=== PATIENT | male | born 1960 | race Caucasian/White ===

== ENCOUNTER 2023-01-22 05:37 | Inpatient (IN) ==
--- NOTE | 2022-11-01 09:55 | PAT Medication Instructions ---
Medication Instructions Date of Service November 01, 2022 Home Medications acetaminophen 325 mg capsule 650 mg PO Q6H PRN Pain amlodipine 5 mg tablet 5 mg PO BID bupropion HCl 150 mg tablet,12 hr sustained-release 150 mg PO BID clopidogrel 75 mg tablet 75 mg PO DAILY hydralazine 25 mg tablet 25 mg PO BID irbesartan 300 mg tablet 300 mg PO DAILY loratadine 10 mg tablet 10 mg PO DAILY metoprolol succinate 100 mg tablet,extended release 24 hr 100 mg PO QAM multivitamin 1 tab PO DAILY aspirin 81 mg capsule 81 mg PO DAILY atorvastatin 20 mg tablet 20 mg PO QPM sodium chloride 1,000 mg soluble tablet 1,000 mg PO DAILY ASK your surgeon for instructions clopidogrel 75 mg tablet 75 mg PO DAILY aspirin 81 mg capsule 81 mg PO DAILY DO NOT take the morning of surgery irbesartan 300 mg tablet 300 mg PO DAILY loratadine 10 mg tablet 10 mg PO DAILY multivitamin 1 tab PO DAILY sodium chloride 1,000 mg soluble tablet 1,000 mg PO DAILY Take morning of surgery With a small sip of water, OTHERWISE NOTHING TO EAT OR DRINK AFTER MIDNIGHT: acetaminophen 325 mg capsule 650 mg PO Q6H PRN Pain (if needed) amlodipine 5 mg tablet 5 mg PO BID bupropion HCl 150 mg tablet,12 hr sustained-release 150 mg PO BID hydralazine 25 mg tablet 25 mg PO BID metoprolol succinate 100 mg tablet,extended release 24 hr 100 mg PO QAM Take evening before surgery acetaminophen 325 mg capsule 650 mg PO Q6H PRN Pain (if needed) amlodipine 5 mg tablet 5 mg PO BID bupropion HCl 150 mg tablet,12 hr sustained-release 150 mg PO BID hydralazine 25 mg tablet 25 mg PO BID atorvastatin 20 mg tablet 20 mg PO QPM Other Notes If you have any questions please call us at [phone] or [phone] or [phone] or [phone]
--- NOTE | 2022-11-06 09:09 | Anesthesiology Consultation ---
Date of Service November 06, 2022 Assessment & Plan (1) Encounter for pre-operative examination: - daughter or staff from facility ([facility]) sign consents per Lizzy, staff member accompanying patient today. - cardiology 07/17/22: "...2 eipsodes of TIA-like symptoms with negative MRI of the brain, implantable loop recorder showed no arrhythmia...cerebellar ataxia...continue current medications...RTC in 8 months..." Chart Review Chart Review: Acceptable Risk for Surgery and Patient seen in Pre Admission Testing Teaching & Discussion Pre-Anesthesia Teaching/Discussion Notes: Instructed NPO after midnight before surgery, except medications with 15 cc of water. Medication instructions provided according to the PAT guidelines. History Surgery Operation Date: 11/14/22 07:30 Proposed Procedures p Right Transcarotid Artery Revascularization - Thierno Nicolas MD Height/Weight Height: 5 ft 7.5 in Weight: 88 kg Allergies Allergy/AdvReac Type Severity Reaction Status Date / Time Penicillins AdvReac Severe Rash Verified 10/31/22 13:35 lisinopril AdvReac Unknown Cough Verified 10/31/22 13:35 Medications Home Medications Medication Instructions Recorded Confirmed Last Taken acetaminophen 325 mg capsule 650 mg PO Q6H PRN Pain 10/05/20 10/31/22 Unknown amlodipine 5 mg tablet 5 mg PO BID 10/05/20 10/31/22 Unknown bupropion HCl 150 mg tablet,12 hr 150 mg PO BID 10/05/20 10/31/22 Unknown sustained-release clopidogrel 75 mg tablet 75 mg PO DAILY 10/05/20 10/31/22 Unknown hydralazine 25 mg tablet 25 mg PO BID 10/05/20 10/31/22 Unknown irbesartan 300 mg tablet 300 mg PO DAILY 10/05/20 10/31/22 Unknown loratadine 10 mg tablet 10 mg PO DAILY 10/05/20 10/31/22 Unknown metoprolol succinate 100 mg 100 mg PO QAM 10/05/20 10/31/22 Unknown tablet,extended release 24 hr multivitamin 1 tab PO DAILY 10/05/20 10/31/22 Unknown aspirin 81 mg capsule 81 mg PO DAILY 10/31/22 10/31/22 Unknown atorvastatin 20 mg tablet 20 mg PO QPM 10/31/22 10/31/22 Unknown sodium chloride 1,000 mg soluble 1,000 mg PO DAILY 10/31/22 10/31/22 Unknown tablet Past Medical History Medical History (Updated 11/06/22 @ 15:54 by Terri Arce PA-C) Carotid artery stenosis 60% diameter stenosis of the right internal carotid artery origin on 04/2020 neck CTA Chronic obstructive pulmonary disease controlled, stable per pt, does not use rescue inhaler CVA (cerebral vascular accident) 5 yrs ago, denies residual effects Dementia per staff member: daughter signs consents, daughter or staff member will be present DOS GERD (gastroesophageal reflux disease) intermittent, stable per pt Hyperlipidemia Hypertension controlled, stable per pt Hyponatremia Major depressive disorder Patient denies h/o seizures, heart attack, heart failure, DM, blood clots or blood transfusions. Exercise / Class Metabolic Activity III < 4 Walking/Shop/Light housework (denies chest discomfort or shortness of breath with usual activities) Past Surgical History Surgical History (Updated 11/06/22 @ 09:06 by Terri Arce PA-C) History of tonsillectomy Past Anesthesia History No Hx of Anesthesia Complications and No Family Hx of Anesthesia Complications History of PONV No Hx of PONV and No Hx of Motion Sickness Social History Smoking Status: Current every day smoker (10 cigarettes day-advised) Do You Dip or Chew Tobacco: No Hx Alcohol Use: No Hx Substance Use: No Review of Systems Patient denies chest pain, shortness of breath, dyspnea on exertion, snoring, witnessed apneas, fever, chills, cough, wheezing, or palpitations. Physical Exam Vital Signs Vitals BP 118/76 P 65 TEMP 97.9 SP02 98% on RA RESP 18 Physical Full cervical extension range of motion without pain TMD 3.5 finger bredaths Mallampati Score 2 Dentition: edentulous, wears upper dentures Lungs: normal respiratory effort. Clear throughout to auscultation, no adventitious breath sounds Cardiac: regular rate and rhythm, no murmurs noted Lab Results Anesthesia Preop Results Results Anesthesia Widget: WBC 4.38 K/ul (4.8-10.8) L 11/06/22 Hgb 12.1 g/dl (14.0-18.0) L 11/06/22 Hct 35.2 % (42.0-52.0) L 11/06/22 Plt 306 K/uL (130-400) 11/06/22 Na 133 mmol/L (136-145) L 11/06/22 K 4.6 mmol/L (3.5-5.1) 11/06/22 Cl 104 mmol/L (98-107) 11/06/22 CO2 22 mmol/L (21-32) 11/06/22 BUN 22 mg/dl (6-23) 11/06/22 Creat 1.32 mg/dl (0.6-1.4) 11/06/22 Glucose Level 101 mg/dl (70-99(Fasting)) H 11/06/22 PT 10.8 Seconds (9.0-12.0) 11/06/22 PTT 28.8 Seconds (21.0-31.0) 11/06/22 INR 1.0 (0.9-1.1) 11/06/22 Blood Type O Positive 11/06/22 Antibody Screen NEGATIVE 11/06/22 Testing Electrocardiogram Date: 11/06/22 NSR, rate 61 bpm Chest X-Ray Date: 11/06/22 No pneumothorax. No pleural effusions. Small linear densities within the left mid to lower lung zones favor subsegmental atelectasis or scarring. Stable punctate calcified granuloma within the right lower lobe. No new focal lung consolidations to suggest a pneumonia. No evidence for pulmonary edema. The heart is normal in size. A loop recorder is noted. Old, healed left-sided rib fractures. There is also an old, healed distal left clavicle fracture. IMPRESSION: No acute process. Echocardiogram Date: 07/13/21 EF 60% Grade 1 diastolic dysfunction Mildly dilated RA Mild mitral regurgitation Moderate tricuspid regurgitation PASP 45 mmHg Stress Test Date: 09/04/21 Pharmacologic Mild movement and increased GI uptake. Good quality study No significant rest or stress associated MPI defects. No evidence of myocardial ischemia or infarct Low risk study EF 69% Normal LV wall motion Other Testing Neck CTA 05/09/20 60% diameter stenosis of the right internal carotid artery origin. COVID-19 Risk Screen Screening Information COVID-19 Screen Date: 11/06/22 Exposure 21 Days Family/Household +COVID Last 21 Days: No Exposure 10 Days Any COVID Exposure Last 10 Days: No Symptoms Last 10 Days Experienced COVID Sx Last 10 Days: No + COVID 0-90 Days COVID + in Last 0-90 Days: No
--- NOTE | 2023-01-09 10:52 | PAT Medication Instructions ---
Medication Instructions Date of Service January 09, 2023 Home Medications acetaminophen 325 mg capsule 650 mg PO Q6H PRN Pain amlodipine 5 mg tablet 5 mg PO BID bupropion HCl 150 mg tablet,12 hr sustained-release 150 mg PO BID clopidogrel 75 mg tablet 75 mg PO QAM hydralazine 25 mg tablet 25 mg PO BID irbesartan 300 mg tablet 300 mg PO QAM loratadine 10 mg tablet 10 mg PO QAM metoprolol succinate 100 mg tablet,extended release 24 hr 100 mg PO QAM multivitamin 1 tab PO QAM aspirin 81 mg capsule 81 mg PO DAILY atorvastatin 20 mg tablet 20 mg PO QPM sodium chloride 1,000 mg soluble tablet 1,000 mg PO QAM calcium carbonate 300 mg (750 mg) chewable tablet (Tums E-X) 300 mg PO TID PRN Heartburn ASK your prescriber and surgeon clopidogrel 75 mg tablet 75 mg PO QAM aspirin 81 mg capsule 81 mg PO DAILY DO NOT take the morning of surgery irbesartan 300 mg tablet 300 mg PO QAM loratadine 10 mg tablet 10 mg PO QAM multivitamin 1 tab PO QAM sodium chloride 1,000 mg soluble tablet 1,000 mg PO QAM calcium carbonate 300 mg (750 mg) chewable tablet (Tums E-X) 300 mg PO TID PRN Heartburn Take morning of surgery With a small sip of water, OTHERWISE NOTHING TO EAT OR DRINK AFTER MIDNIGHT: acetaminophen 325 mg capsule 650 mg PO Q6H PRN Pain (if needed) amlodipine 5 mg tablet 5 mg PO BID bupropion HCl 150 mg tablet,12 hr sustained-release 150 mg PO BID hydralazine 25 mg tablet 25 mg PO BID metoprolol succinate 100 mg tablet,extended release 24 hr 100 mg PO QAM Take evening before surgery acetaminophen 325 mg capsule 650 mg PO Q6H PRN Pain (if needed) amlodipine 5 mg tablet 5 mg PO BID bupropion HCl 150 mg tablet,12 hr sustained-release 150 mg PO BID hydralazine 25 mg tablet 25 mg PO BID atorvastatin 20 mg tablet 20 mg PO QPM calcium carbonate 300 mg (750 mg) chewable tablet (Tums E-X) 300 mg PO TID PRN Heartburn (if needed) Other Notes If you have any questions please call us at [phone] or [phone] or [phone] or [phone]
[~2023-01-22 05:37] MED LIST: ALLERGY Noted to ORDERED Medication SCH; CLINDAMYCIN/D5W 900 MG/50 ML BAG IV SCH; SODIUM CHLORIDE 0.9% 1000ML IV SCH
[2023-01-22] MEDS ORDERED: CLINDAMYCIN/D5W 900 MG/50 ML BAG IV SCH (06:00)
[2023-01-22] MEDS ORDERED: fentaNYL citrate PF 100 MCG/2 ML VIAL ONE (06:20)
[2023-01-22] MEDS ORDERED: ROCURONIUM BROMIDE 10 MG/ML 5 ML VIAL IV ONE ×4 (06:20→09:48)
[2023-01-22] MEDS ORDERED: PROPOFOL IV EMULSION 10 MG/ML 20 ML VIAL IV ONE (06:20)
[2023-01-22] MEDS ORDERED: SUGAMMADEX SODIUM 200 MG/2 ML VIAL IV ONE (06:20)
[2023-01-22] MEDS ORDERED: HEPARIN SOD (PORCINE) 1000 UNIT/ML ONE (06:20)
[2023-01-22] MEDS ORDERED: NITROGLYCERIN/D5W 100 MCG/ML BTL ONE (06:20)
[2023-01-22] MEDS ORDERED: ONDANSETRON INJ 2 MG/ML 2 ML VIAL ONE (06:20)
[2023-01-22] MEDS ORDERED: DEXAMETHASONE SOD INJ 4 MG/ML VIAL ONE (06:20)
[2023-01-22] MEDS ORDERED: ESMOLOL HCL INJ 10 MG/ML 10ML VIAL IV ONE (06:20)
[2023-01-22] MEDS ORDERED: LIDOCAINE 1% LOCAL 20 ML VIAL ONE (07:03)
[2023-01-22] MEDS ORDERED: GELATIN SPONGE SZ 100 ONE (07:03)
[2023-01-22] MEDS ORDERED: HEPARIN (PORCINE) 1000 UNIT/ML 10 ML (CATH LAB USE ONLY) ONE (07:03)
[2023-01-22] MEDS ORDERED: THROMBIN FOR SOLN 20000 UNIT KIT ONE (07:03)
[2023-01-22] MEDS ORDERED: ceFAZolin 330 MG/ML 1 GM VIAL ONE (07:03)
[2023-01-22] MEDS ORDERED: BUPIVACAINE/EPINEPHRINE 0.5% MPF 1:200,000 30 ML VIAL ONE (07:03)
--- NOTE | 2023-01-22 07:51 | History & Physical Report ---
Date of Service January 22, 2023 Assessment & Plan (1) Bilateral carotid artery stenosis: Plan: Patient admitted for a right CEA. TCAR was not approved by his insurance. I have discussed the risks options and benefits of the procedure with the patient. The patient understands the risks options and benefits and agrees to the procedure. History of Present Illness Chief Complaint: Bilateral carotid stenosis Primary Care Provider: Daisha Montana PA-C Mr. Jones is a middle-aged male who presents for bilateral ICA stenosis noted on recent imaging. Patient states that he has a history of stroke in the past, but is unable to give any more specific history. He states that his symptoms were "falling into a chair" about 3 years ago. He denies any symptoms of cerebrovascular insufficiency in the recent past, including amaurosis, extremity weakness numbness or tingling, difficulty speaking or swallowing, facial droop. 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 Patient denies headache, fever, chest pain, shortness of breath, abdominal pain, nausea, vomiting, rest pain, claudication, nonhealing wounds or ulcers, other complaints. Allergies Allergy/AdvReac Type Severity Reaction Status Date / Time Penicillins AdvReac Severe Rash Verified 01/09/23 10:05 lisinopril AdvReac Mild Cough Verified 01/09/23 10:05 Home Medications Medication Instructions Recorded Confirmed Type acetaminophen 325 mg capsule 650 mg PO Q6H PRN Pain 10/05/20 01/22/23 History amlodipine 5 mg tablet 5 mg PO BID 10/05/20 01/22/23 History bupropion HCl 150 mg tablet,12 hr 150 mg PO BID 10/05/20 01/22/23 History sustained-release clopidogrel 75 mg tablet 75 mg PO QAM 10/05/20 01/22/23 History hydralazine 25 mg tablet 25 mg PO BID 10/05/20 01/22/23 History irbesartan 300 mg tablet 300 mg PO QAM 10/05/20 01/22/23 History loratadine 10 mg tablet 10 mg PO QAM 10/05/20 01/22/23 History metoprolol succinate 100 mg 100 mg PO QAM 10/05/20 01/22/23 History tablet,extended release 24 hr multivitamin 1 tab PO QAM 10/05/20 01/22/23 History aspirin 81 mg capsule 81 mg PO DAILY 10/31/22 01/22/23 History atorvastatin 20 mg tablet 20 mg PO QPM 10/31/22 01/22/23 History sodium chloride 1,000 mg soluble 1,000 mg PO QAM 10/31/22 01/22/23 History tablet calcium carbonate 300 mg (750 mg) 300 mg PO TID PRN Heartburn 01/09/23 01/22/23 History chewable tablet (Tums E-X) Past Med/Surg History Medical History Carotid artery stenosis 60% diameter stenosis of the right internal carotid artery origin on 04/2020 neck CTA Chronic obstructive pulmonary disease controlled, stable per pt, does not use rescue inhaler CVA (cerebral vascular accident) 5 yrs ago, denies residual effects Dementia per staff member: daughter signs consents, daughter or staff member will be present DOS GERD (gastroesophageal reflux disease) intermittent, stable per pt Hyperlipidemia Hypertension controlled, stable per pt Hyponatremia Major depressive disorder Surgical History History of tonsillectomy Family History Other Family history unknown Social History Smoking Status: Unknown if ever smoked Preferred Language: Japanese Communication Ability: Effective Communication Ability Comment: per [facility] pt is of sound mind to sign consents Emergency Operator Required: No Current Living Situation: Intermediate Assistive Devices Comment: unsure what devices pt needs Review of Systems All systems reviewed & are unremarkable except as noted in HPI & below Physical Exam Physical Exam: Constitutional: In general patient is a healthy-appearing well-nourished well- developed middle-aged male in no distress. He is alert and oriented without any focal deficits. He is a poor historian. His head is normocephalic and atraumatic. His neck is supple nontender with midline trachea. There is a faint bilateral carotid bruit. His heart is regular, his lungs are decreased throughout with sparse expiratory wheezing but clear otherwise. His abdomen is soft nontender with normoactive bowel sounds in all 4 quadrants. Brachial radial and femoral pulses are +3. Lower extremity distal pulses are +2 in the left +1 on the right. He has brisk capillary refill and no sign of distal ischemia. There is no edema. Results & Data Vital Signs (Past 12 Hours) Vital Signs Temp Pulse Resp BP Pulse Ox O2 Del Method 01/22/23 05:59 36.4 C L 64 20 137/70 99 Room Air
[2023-01-22] MEDS ORDERED: LACTATED RINGER'S 1,000 ML IV SCH (09:00)
[2023-01-22] MEDS ORDERED: ATROPINE SULFATE 0.1 MG/ML 10ML SYR IV PRN (09:41)
[2023-01-22] MEDS ORDERED: NALOXONE HCL 0.4 MG/1 ML VIAL/CARP IV PRN (09:41)
[2023-01-22] MEDS ORDERED: ONDANSETRON INJ 2 MG/ML 2 ML VIAL IV PRN (09:41)
[2023-01-22] MEDS ORDERED: ePHEDrine sulfate 50 MG/ML AMP IV PRN (09:41)
[2023-01-22] MEDS ORDERED: FLUMAZENIL 0.1 MG/1 ML 10 ML VIAL IV PRN (09:41)
[2023-01-22] MEDS ORDERED: LABETALOL HCL IV 5 MG/ML 20ML IV PRN (09:41)
[2023-01-22] MEDS ORDERED: fentaNYL citrate PF 100 MCG/2 ML VIAL IV PRN (09:41)
[2023-01-22] MEDS ORDERED: PROMETHAZINE HCL 12.5 MG in SODIUM CHLORIDE 0.9% 50 ML IV PRN (09:41)
[2023-01-22] MEDS ORDERED: PROTAMINE SULFATE 10 MG/ML 5 ML VIAL IV ONE (10:48)
--- NOTE | 2023-01-22 11:13 | Operative Report ---
Post Operative Report Pre & Post Diagnosis Operation Date: 01/22/23 07:30 Pre-Op Diagnosis: Right Internal Carotid Artery Stenosis Post-Op Diagnosis: Right Internal Carotid Artery Stenosis I identified the patient and participated in the time-out.: Yes Procedure Operation Date: 01/22/23 07:30 Actual Procedures p Right Carotid Endarterectomy with Bovine Patch(Right) - Thierno Nicolas MD Surgeon Thierno Nicolas MD Associate Store Manager David,PAC Estimated Blood Loss 50 Findings Consistent with Post-Op Diagnosis Specimens plaque Anesthesia Type General Complications none Disposition Accompanied Patient To Recovery: No Disposition: Recovery Room Indications This is a 62-year-old gentleman who was found to have bilateral severe internal carotid artery stenosis. Intervention was recommended. We discussed the risks options and benefits of TCAR versus endarterectomy. His insurance declined the TCAR procedure. He is now admitted for right carotid endarterectomy. I have discussed the risks options and benefits of the procedure with the patient. The patient understands the risks options and benefits and agrees to the procedure. Description of Procedure The patient was taken to the operating room and placed in supine position. After general anesthesia was accomplished the right side of the neck was prepped and draped in a sterile manner. The patient was identified and a timeout performed. A longitudinal neck incision was then made coursing along the medial border of the sternocleidomastoid muscle. The incision was taken down through the platysmal layer. The facial vein was identified, ligated, and divided. The common carotid artery was then seen. It was dissected free down to the omohyoid muscle. The dissection was carried upward until the external carotid artery and superior thyroid artery was seen. The superior thyroid artery was slung with a 2-0 silk suture. The external carotid was slung with a red rubber vessel loop. Next the dissection was carried up along the internal carotid artery. This was carried upward to beyond the area of narrowing. The hypoglossal nerve was not seen being that the bifurcation was low in the neck.. The patient was heparinized. After adequate heparinization was accomplished, the internal, external, and common carotid arteries were clamped. A longitudinal arteriotomy was started on the common carotid artery and extended upward along the internal carotid artery to a point beyond the area of narrowing. There was calcified plaque of the internal carotid artery origin causing approximately 85-90% narrowing. A Doppler shunt was then placed in the internal, followed by the common carotid artery and held in place with Jerry clamps. There was good back bleeding seen from the internal carotid artery. The endarterectomy was then started in the appropriate plane on the common carotid artery. This was carried upward and the external carotid was everted and endarterectomized. The e ndarterectomy was then carried up along the internal carotid artery till a nice feathering breakoff point was accomplished beyond the end of the plaque. The endarterectomy was then carried down further on the common carotid artery. At end of the arteriotomy, the plaque was then transected. Under loop magnification, all loose debris and flaps werer removed. There is no distal flap seen at the end of the endarterectomy site. 2 tacking stitches of 7-0 Prolene were placed in the internal carotid artery at the breakoff point posteriorly. The arteriotomy then closed using an bovine patch and a running CV 6 Prolene suture. This was done in the usual vascular fashion. Prior to completing the closure, the doppler shunt was removed and the internal and common carotid arteries were reclamped. Backbleeding and forward bleeding was allowed to occur. The flow surface was irrigated with heparinized saline. The final few sutures were then placed and securely tied. Clamps were then removed off the external and common carotid arteries. The clamp was then removed the internal carotid artery. Good distal flow was seen. Adequate hemostasis was seen of the patch. The wound was inspected and adequate hemostasis was obtained. The wound was irrigated with antibiotic solution. It was then closed with a running 3-0 Vicryl suture for the platysmal layer and a 4-0 subcuticular Vicryl suture for the skin edges. Dermabond was used for dressing. The patient left the operation room in satisfactory condition and tolerated the procedure well. All needle and sponge counts were correct at the end of the procedure. Shirley Dial Pac assisted due to lack of resident availability and was necessary for prepping, draping, retraction, wound closure defects, subQ and skin closure and was necessary for the case. I attest to the content of the Intraoperative Record and any orders documented therein. Any exceptions are noted below.
--- NOTE | 2023-01-22 12:09 | Anesthesiology Progress Note ---
Date of Service January 22, 2023 Anesthesia Post Procedure Vital Signs Vital Signs: Temp Pulse Pulse Resp BP BP Pulse Ox 01/22/23 12:00 67 16 133/62 123/65 96 01/22/23 11:50 65 16 132/60 128/60 96 01/22/23 11:40 65 16 125/60 112/73 96 01/22/23 11:30 36.3 C L 73 14 128/59 L 128/65 97 01/22/23 05:59 36.4 C L 64 20 137/70 99 O2 Del Method O2 Flow Rate 01/22/23 12:00 Nasal Cannula 3 01/22/23 11:50 Nasal Cannula 3 01/22/23 11:40 Nasal Cannula 3 01/22/23 11:30 Oxymask 6 01/22/23 05:59 Room Air Transfer of Care Handoff Completed per policy Notes Mental Status: alert / awake / arousable Patient Amnestic to Procedure: Yes Nausea / Vomiting: adequately controlled Pain: adequately controlled Airway Patency, RR, SpO2: stable & adequate BP & HR: stable & adequate Hydration State: stable & adequate Anesthetic Complications: no major complications apparent
[2023-01-22] MEDS ORDERED: MoRPHine SULFATE 4 MG/ML 1 ML CARP\\VIAL IV PRN (12:39)
[2023-01-22] MEDS ORDERED: oxyCODONE/ACETAMINOPHEN 5mg/325mg TAB PO PRN (12:39)
[2023-01-22] MEDS ORDERED: CALCIUM CARBONATE 500 MG CHEWABLE TAB PO PRN (12:54)
[2023-01-22] MEDS: LACTATED RINGER'S 1,000 ML IV SCH ×2 (13:00→23:28)
--- NOTE | 2023-01-22 14:29 | Critical Care Consultation ---
Date of Consultation January 22, 2023 Assessment & Plan (1) Bilateral carotid artery stenosis: (2) Alcohol use disorder: (3) Hypertension: (4) Urinary retention: Plan 62-year-old male past medical history of hypertension, dyslipidemia, CVA in the past presented to the hospital for carotid endarterectomy. In the ICU for further care -- Carotid artery stenosis S/p right-sided CEA by Dr. Nicolas on 01/22/2023 Neurochecks as per protocol Monitor for bleeding/swelling --Urinary retention Likely post operative Ba catheter to be placed -- Hypertension Continue with home medication --Active smoker with likely COPD Would recommend outpatient PFT No wheezing right now, no need for any inhalers -- Probable RICHARD BiPAP nightly and as needed shortness of breath --Prophylaxis VTE: IPC's GI: None Lines: Peripheral, left radial Diet: Cardiac Plan: Continue with neurochecks Given the history of alcohol abuse we will put the patient on CIWA protocol For the right-sided neck swelling around the incision site with hematoma, there is no stridor on physical exam Continue to monitor for any airway compromise Monitor H&H For urinary retention Ba catheter will be placed, can consider tamsulosin/finasteride later on Please note the above document was generated using voice recognition software. It may contain grammatical, syntax or spelling errors.Any formal questions or concerns about the content, text or information contained within the body of this dictation should be directly addressed to the provider for clarification. History of Present Illness Attending Physician: Thierno Nicolas MD History of Present Illness 62-year-old male presented to the hospital for right-sided carotid endarterectomy Past medical history: Hypertension, dyslipidemia, history of CVA Patient was sent to the ICU for further care At the time of examinations patient's systolic blood pressure was in the 160s. Saturating 98-99% on room air Not in any acute distress Denied any chest pain, no shortness of breath. Mild discomfort at the site of the incision. No cough. Complains of mild irritation in the right eye which is congested. Denies any headache, no nausea, no vomiting He was not able to urinate since coming to the ICU. Social history: Active smoker with greater than [id number] smoking history. Used to be heavy drinker Allergies Allergy/AdvReac Type Severity Reaction Status Date / Time Penicillins AdvReac Severe Rash Verified 01/09/23 10:05 lisinopril AdvReac Mild Cough Verified 01/09/23 10:05 Home Medications Medication Instructions Recorded Confirmed Type acetaminophen 325 mg capsule 650 mg PO Q6H PRN Pain 10/05/20 01/22/23 History amlodipine 5 mg tablet 5 mg PO BID 10/05/20 01/22/23 History bupropion HCl 150 mg tablet,12 hr 150 mg PO BID 10/05/20 01/22/23 History sustained-release clopidogrel 75 mg tablet 75 mg PO QAM 10/05/20 01/22/23 History hydralazine 25 mg tablet 25 mg PO BID 10/05/20 01/22/23 History irbesartan 300 mg tablet 300 mg PO QAM 10/05/20 01/22/23 History loratadine 10 mg tablet 10 mg PO QAM 10/05/20 01/22/23 History metoprolol succinate 100 mg 100 mg PO QAM 10/05/20 01/22/23 History tablet,extended release 24 hr multivitamin 1 tab PO QAM 10/05/20 01/22/23 History aspirin 81 mg capsule 81 mg PO DAILY 10/31/22 01/22/23 History atorvastatin 20 mg tablet 20 mg PO QPM 10/31/22 01/22/23 History sodium chloride 1,000 mg soluble 1,000 mg PO QAM 10/31/22 01/22/23 History tablet calcium carbonate 300 mg (750 mg) 300 mg PO TID PRN Heartburn 01/09/23 01/22/23 History chewable tablet (Tums E-X) Patient History Medical History Carotid artery stenosis 60% diameter stenosis of the right internal carotid artery origin on 04/2020 neck CTA Chronic obstructive pulmonary disease controlled, stable per pt, does not use rescue inhaler CVA (cerebral vascular accident) 5 yrs ago, denies residual effects Dementia per staff member: daughter signs consents, daughter or staff member will be present DOS GERD (gastroesophageal reflux disease) intermittent, stable per pt Hyperlipidemia Hypertension controlled, stable per pt Hyponatremia Major depressive disorder Surgical History History of tonsillectomy Family History Other Family history unknown Social History Smoking Status: Unknown if ever smoked Preferred Language: Niuean Communication Ability: Effective Communication Ability Comment: per [facility] pt is of sound mind to sign consents Ecologist Technician Required: No Current Living Situation: Care Home Assistive Devices Comment: unsure what devices pt needs Review of Systems Review of Systems: All systems reviewed & are unremarkable except as noted in HPI & below Physical Exam Physical Exam: Constitutional: No acute distress HEENT: EOMI, PERRLA, right conjunctival injection, right neck incision with some swelling and keron-incisional hematoma, no stridor Respiratory system: Good air entry bilaterally, no wheeze, no rhonchi, mild crackles bilateral lower lobes CVS: S1-S2 positive, no murmurs or gallops Abdomen: Soft, nontender, nondistended, positive bowel sounds x4, obese Extremities: +2 pulses bilaterally radialis/ dorsalis pedis, no cyanosis, no edema Neuro: Awake alert oriented x3 Psych: Normal mood and affect G/U: Ba being placed Skin: no rashes, warm and dry Lymphatic: no cervical or axillary lymphadenopathy Results & Data Results & Data Vital Signs (Past 12 Hours) Vital Signs Temp Pulse Pulse Pulse Resp BP BP 01/22/23 13:00 65 12 124/81 01/22/23 12:26 63 12 01/22/23 12:39 01/22/23 12:39 36.4 C L 01/22/23 12:26 63 01/22/23 12:10 36.3 C L 65 16 130/60 01/22/23 12:00 67 16 133/62 01/22/23 11:50 65 16 132/60 01/22/23 11:40 65 16 125/60 01/22/23 11:30 36.3 C L 73 14 128/59 L 01/22/23 05:59 36.4 C L 64 20 BP Pulse Ox O2 Del Method O2 Flow Rate 01/22/23 13:00 93 01/22/23 12:26 95 Room Air 01/22/23 12:39 Nasal Cannula 2 01/22/23 12:39 01/22/23 12:26 01/22/23 12:10 125/66 96 Nasal Cannula 3 01/22/23 12:00 123/65 96 Nasal Cannula 3 01/22/23 11:50 128/60 96 Nasal Cannula 3 01/22/23 11:40 112/73 96 Nasal Cannula 3 01/22/23 11:30 128/65 97 Oxymask 6 01/22/23 05:59 137/70 99 Room [place] [address] IN/OBS CONSULT LVL 4,60M Patient Type New Diagnoses Bilateral carotid artery stenosis I65.23 Alcohol use disorder F10.90 Hypertension I10 Urinary retention R33.9
[2023-01-22] MEDS ORDERED: LORazepam 2 MG/1 ML VIAL IV PRN ×3 (14:59)
[2023-01-22] MEDS ORDERED: Ativan IV Alcohol Withdrawal--Active Protocol IV PRN (14:59)
[2023-01-22] MEDS: THIAMINE HCL 100 MG TAB PO SCH (16:33)
[2023-01-22] MEDS: FOLIC ACID 1 MG TAB PO SCH (16:33)
[2023-01-22] MEDS: CLINDAMYCIN/D5W 600 MG/50 ML BAG IV SCH (18:11)
[2023-01-22] MEDS: amLODIPine BESYLATE 5 MG TAB PO SCH (20:18)
[2023-01-22] MEDS: hydrALAZINE HCL 25 MG TAB PO SCH (20:18)
[2023-01-22] MEDS: buPROPion SR 150 MG TABCR PO SCH (20:19)
[2023-01-22] MEDS ORDERED: ATORVASTATIN 20 MG TAB PO SCH (21:00)
[2023-01-23] MEDS: CLINDAMYCIN/D5W 600 MG/50 ML BAG IV SCH (01:36)
--- NOTE | 2023-01-23 07:34 | Critical Care Progress Note ---
Date of Service January 23, 2023 Assessment & Plan (1) Bilateral carotid artery stenosis: (2) Alcohol use disorder: (3) Hypertension: (4) Urinary retention: Plan 62-year-old male past medical history of hypertension, dyslipidemia, CVA in the past presented to the hospital for carotid endarterectomy. In the ICU for further care -- Carotid artery stenosis S/p right-sided CEA by Dr. Nicolas on 01/22/2023 Neurochecks as per protocol Monitor for bleeding/swelling --Urinary retention Likely post operative Ba catheter to be placed -- Hypertension Continue with home medication --Active smoker with likely COPD Would recommend outpatient PFT No wheezing right now, no need for any inhalers -- Probable RICHARD BiPAP nightly and as needed shortness of breath --Prophylaxis VTE: IPC's GI: None Lines: Peripheral, left radial Diet: Cardiac Plan: In/out: -2180, urine output 5550 Trial of discontinuing Ba later today. Patient hemodynamically stable to be out of the ICU Disposition as per vascular surgery Please note the above document was generated using voice recognition software. It may contain grammatical, syntax or spelling errors.Any formal questions or concerns about the content, text or information contained within the body of this dictation should be directly addressed to the provider for clarification. Admission and Anticipated Discharge Date Admission Date: January 22, 2023 Subjective Patient seen and examined at bedside. No acute distress, no adverse events overnight He said he had a good night sleep. Denies any chest pain, no shortness of breath No headache, no dizziness, no blurry vision Does complain of mild discomfort at the site of the incision but to be better than before No difficulty swallowing Review of Systems Review of Systems: All systems reviewed & are unremarkable except as noted in Subjective Physical Exam Physical Exam: Constitutional: No acute distress HEENT: EOMI, PERRLA, right conjunctival injection, right neck incision with some swelling and keron-incisional hematoma, no stridor Respiratory system: Good air entry bilaterally, no wheeze, no rhonchi, mild crackles bilateral lower lobes CVS: S1-S2 positive, no murmurs or gallops Abdomen: Soft, nontender, nondistended, positive bowel sounds x4, obese Extremities: +2 pulses bilaterally radialis/ dorsalis pedis, no cyanosis, no edema Neuro: Awake alert oriented x3, cranial nerves II to XII grossly intact, strength 5 out of 5 bilateral upper and lower extremity Psych: Normal mood and affect G/U: Ba being placed Skin: no rashes, warm and dry Lymphatic: no cervical or axillary lymphadenopathy Results & Data Results & Data Vital Signs (Past 12 Hours) Vital Signs Temp Pulse Resp BP Pulse Ox O2 Del Method 01/23/23 07:00 67 21 120/75 92 Room Air 01/23/23 06:00 73 12 149/73 H 93 Room Air 01/23/23 05:00 70 17 130/69 93 Room Air 01/23/23 04:00 74 14 150/77 H 92 Room Air 01/23/23 04:00 74 134/77 01/23/23 03:00 36.8 C 74 12 134/77 94 Room Air 01/23/23 02:00 78 12 121/55 L 92 Room Air 01/23/23 01:00 86 20 152/78 H 95 Room Air 01/23/23 00:00 78 01/23/23 00:00 77 137/72 01/23/23 00:00 36.9 C 77 19 137/72 92 Room Air 01/22/23 23:00 76 15 153/80 H 93 Room Air 01/22/23 22:00 78 12 143/77 H 96 01/22/23 21:00 79 15 150/84 H 93 Room Air 01/22/23 20:00 81 20 151/77 H 95 Room Air 01/22/23 20:00 80 135/55 L 01/22/23 20:00 75 Coding Level of Care Code 63436 SUB INP/OBS CARE 2/35MIN Diagnoses Bilateral carotid artery stenosis I65.23 Alcohol use disorder F10.90 Hypertension I10 Urinary retention R33.9
[2023-01-23] MEDS: FOLIC ACID 1 MG TAB PO SCH (08:09)
[2023-01-23] MEDS: hydrALAZINE HCL 25 MG TAB PO SCH (08:09)
[2023-01-23] MEDS: THIAMINE HCL 100 MG TAB PO SCH (08:09)
[2023-01-23] MEDS: buPROPion SR 150 MG TABCR PO SCH (08:09)
[2023-01-23] MEDS: amLODIPine BESYLATE 5 MG TAB PO SCH (08:09)
[2023-01-23] MEDS ORDERED: MULTIVITAMIN TAB PO SCH (09:00)
[2023-01-23] MEDS ORDERED: METOPROLOL SUCC 50MG EXT REL TAB PO SCH (09:00)
[2023-01-23] MEDS ORDERED: LORATADINE 10 MG TAB PO SCH (09:00)
[2023-01-23] MEDS ORDERED: SODIUM CHLORIDE 1 GM TABLET PO SCH (09:00)
[2023-01-23] MEDS ORDERED: LOSARTAN POTASSIUM 50 MG TAB PO SCH (09:00)
[2023-01-23] MEDS ORDERED: ASPIRIN 81 MG ECTAB PO SCH (09:00)
[2023-01-23] MEDS ORDERED: CLOPIDOGREL BISULFATE 75 MG TAB PO SCH (09:00)
--- NOTE | 2023-01-23 12:10 | Surgery Progress Note ---
Date of Service January 23, 2023 Assessment & Plan (1) S/P carotid endarterectomy: Plan: This gentleman is postoperative day 1 from carotid endarterectomy. He is doing extremely well. He is having no difficulty. He was discharged today to self- care at home. Admission and Anticipated Discharge Date Admission Date: January 22, 2023 Subjective Patient is awake alert. He is sitting in chair eating without difficulty. He has no swallowing problems. He has some mild hoarseness from irritation from the endotracheal tube. Physical Exam Constitutional: WD/WN, vitals as above Neck: trachea midline Respiratory: normal respiratory effort; no respiratory distress Cardiovascular: Rate/Rhythm: regular rate and regular rhythm Musculoskeletal: no cyanosis or clubbing, extremities motor strength 5/5 Skin: + incision (There is mild swelling along the incision line with mild ecchymosis.) Neurologic: CN's II-XI intact bilaterally and moves all extremities Psychiatric: Orientation: alert and oriented x 3 Results & Data Vital Signs (Past 12 Hours) Vital Signs Temp Pulse Resp BP Pulse Ox O2 Del Method 01/23/23 12:00 63 127/73 01/23/23 11:00 63 13 127/73 95 Room Air 01/23/23 10:00 65 17 96 Room Air 01/23/23 09:00 65 13 120/72 96 Room Air 01/23/23 08:00 66 23 139/81 96 Room Air 01/23/23 08:00 36.4 C L 01/23/23 07:00 67 21 120/75 92 Room Air 01/23/23 06:00 73 12 149/73 H 93 Room Air 01/23/23 05:00 70 17 130/69 93 Room Air 01/23/23 04:00 74 14 150/77 H 92 Room Air 01/23/23 04:00 74 134/77 01/23/23 03:00 36.8 C 74 12 134/77 94 Room Air 01/23/23 02:00 78 12 121/55 L 92 Room Air 01/23/23 01:00 86 20 152/78 H 95 Room Air
--- NOTE | 2023-01-23 12:19 | Discharge Summary ---
Date of Service January 23, 2023 Admission HPI Per Admitting Provider Mr. Jones is a middle-aged male who presents for bilateral ICA stenosis noted on recent imaging. Patient states that he has a history of stroke in the past, but is unable to give any more specific history. He states that his symptoms were "falling into a chair" about 3 years ago. He denies any symptoms of cerebrovascular insufficiency in the recent past, including amaurosis, extremity weakness numbness or tingling, difficulty speaking or swallowing, facial droop. 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 Patient denies headache, fever, chest pain, shortness of breath, abdominal pain, nausea, vomiting, rest pain, claudication, nonhealing wounds or ulcers, other complaints. Admission Exam Per Admitting Provider Constitutional: In general patient is a healthy-appearing well-nourished well- developed middle-aged male in no distress. He is alert and oriented without any focal deficits. He is a poor historian. His head is normocephalic and atraumatic. His neck is supple nontender with midline trachea. There is a faint bilateral carotid bruit. His heart is regular, his lungs are decreased throughout with sparse expiratory wheezing but clear otherwise. His abdomen is soft nontender with normoactive bowel sounds in all 4 quadrants. Brachial radial and femoral pulses are +3. Lower extremity distal pulses are +2 in the left +1 on the right. He has brisk capillary refill and no sign of distal ischemia. There is no edema. Principal Diagnosis Right internal carotid artery stenosis Discharge Exam Constitutional: In general patient is a healthy-appearing well-nourished well- developed middle-aged male in no distress. He is alert and oriented without any focal deficits. He is a poor historian. His head is normocephalic and atraumatic. His neck is supple nontender with midline trachea. There is a faint bilateral carotid bruit. His heart is regular, his lungs are decreased throughout with sparse expiratory wheezing but clear otherwise. His abdomen is soft nontender with normoactive bowel sounds in all 4 quadrants. Brachial radial and femoral pulses are +3. Lower extremity distal pulses are +2 in the left +1 on the right. He has brisk capillary refill and no sign of distal ischemia. There is no edema. Constitutional WD/WN, vitals as above Neck trachea midline Respiratory normal respiratory effort; no respiratory distress Cardiovascular Rate/Rhythm: regular rate and regular rhythm Musculoskeletal no cyanosis or clubbing, extremities motor strength 5/5 Skin + incision (There is mild swelling along the incision line with mild ecchymosis.) Neurologic CN's II-XI intact bilaterally and moves all extremities Psychiatric Orientation: alert and oriented x 3 Discharge Data Allergies Allergy/AdvReac Type Severity Reaction Status Date / Time Penicillins AdvReac Severe Rash Verified 01/09/23 10:05 lisinopril AdvReac Mild Cough Verified 01/09/23 10:05 Consultations 01/22/23 12:39 Consult Plastic Surgeon Routine Procedures Performed Operation Date: 01/22/23 07:30 Actual Procedures p Right Carotid Endarterectomy with Bovine Patch(Right) - Thierno Nicolas MD Hospital Course (1) S/P carotid endarterectomy: This gentleman is postoperative day 1 from carotid endarterectomy. He is doing extremely well. He is having no difficulty. He was discharged today to self- care at home. Total Time Total Time Spent Total Time Spent (In Minutes): 0 Discharge Plan Discharge Items Patient Disposition: Home - Self-Care Reason For Visit: Right Internal Carotid Artery Stenosis Discharge Diagnosis: Right internal carotid artery stenosis Activity: Per Instructions section Non-emergency contact: Surgeon Call non-emergency contact if: your temperature is above 101.5, your wound has increased redness, your wound has increased drainage and your wound pain has increased Follow-up/Referrals: Daisha Montana PA-C [Primary Care Provider] - Diet: Heart Healthy Add Attending Provider Instructions: SPECIAL CARE INSTRUCTIONS: Medications: * Continue to take Aspirin and Plavix as directed. Incision Care: * You may shower, but do not rub incision. You may let the warm soapy water run over it. Be sure to dry the incision well after bathing. * Do not shave directly over the incision until it is healed. * DO NOT IMMERSE THE INCISION IN A TUB/POOL/etc. UNTIL HEALED. Restrictions: * Do not drive for at least one week or if you are still taking any narcotic pain medication. * Do not lift anything heavier than a gallon of milk for one week after going home. Possible Complications: * Numbness - It is normal to have some numbness around the incision. Numbness can extend beyond the incision to areas of the neck, ear and face. The numbness is due to bruising of nerves during the surgery and will gradually improve over a period of months. * Hoarseness/Difficulty Speaking and Swallowing - The bruising of nerves in the neck can also cause a hoarse voice, difficulty speaking or swallowing. This may improve over time, HOWEVER, if it continues for more than a few days please contact our office ([phone]). * Excessive Swelling - There will be some swelling immediately after surgery which usually resolves within one week. If you notice that the swelling is getting worse, notify your surgeon ([phone]). * Drainage/Bleeding - If there is any drainage or bleeding, it should be a very small amount (less than a teaspoon per day). If you have excessive bleeding or drainage from the incision, call your surgeon ([phone]) right away. ACTIVATION OF EMERGENCY MEDICAL SYSTEM: Call 911, immediately, if you experience any of the following: Warning Signs and Symptoms of Stroke: * Sudden numbness or weakness of the face, arm or leg, especially on one side of the body * Sudden confusion, trouble speaking or understanding * Sudden trouble seeing in one or both eyes * Sudden trouble walking, dizziness, loss of balance or coordination * Sudden severe headache with no cause Do not delay calling 911 if you experience any warning signs or symptoms of a stroke. Delay in seeking medical attention may affect what treatments can be given to you. Risk Factors for Stroke: You can reduce your chances of stroke by working with your medical provider to adopt a healthy lifestyle. Some specific ways to lower your chance of stroke are: * If you are a smoker, now is the time to stop smoking cigarettes * If you are diabetic, improve the control of your blood sugars * Avoid excessive amounts of alcohol * Control high blood pressure * Lose weight if you are overweight * Be sure to lead an active lifestyle * Eat a healthy diet low in salt, cholesterol and fat You should know about other risk factors for stroke that you are unable to control. These include: * Age 55 years or older * Male gender * Certain racial groups: , or / * Family History of Stroke, Mini stroke or Heart Attack * Sickle Cell Disease You will be receiving a call from the Vascular Surgery Nurse after you are discharged. FOLLOW UP VISIT: It is important for you to keep your follow up appointments with your medical provider. Keep any scheduled doctor appointments. Call [phone] to schedule a follow up appointment if one not already scheduled. Pending Studies at Discharge: No Stand-Alone Forms: My [facility], Smoking Cessation Medications and DC Order Prescriptions: New oxycodone-acetaminophen [Percocet] 5-325 mg tablet 1 tab PO Q6H PRN (Reason: pain) Qty: 20 0RF Continued bupropion HCl 150 mg tablet sustained-release 12 hr 150 mg PO BID clopidogrel 75 mg tablet 75 mg PO QAM Patient Comments: per [facility] prior to surgery 01/15/23 irbesartan 300 mg tablet 300 mg PO QAM loratadine 10 mg tablet 10 mg PO QAM metoprolol succinate 100 mg tablet extended release 24 hr 100 mg PO QAM multivitamin Tablet 1 tab PO QAM acetaminophen 325 mg capsule 650 mg PO Q6H PRN (Reason: Pain) amlodipine 5 mg tablet 5 mg PO BID hydralazine 25 mg tablet 25 mg PO BID atorvastatin 20 mg Tablet 20 mg PO QPM sodium chloride 1,000 mg Tablet,Soluble 1,000 mg PO QAM aspirin 81 mg Capsule 81 mg PO DAILY calcium carbonate [Tums E-X] 300 mg (750 mg) Tablet,Chewable 300 mg PO TID PRN (Reason: Heartburn) Discharge Orders: Discharge Order (Routine); Ordered 01/23/23 Ordered By: Thierno Nicolas Admission Data Admit Date/Time: 01/22/23 07:51 Attending Provider: Thierno Nicolas Admit Provider: Thierno Nicolas Primary Care Provider: Daisha Montana Other Providers: Duran Baer ; Daniel Magdaleno ; Jairo Guerra ; Zoran Cates ; Jeremy Donnelly ; Darío Dykes ; Cecilia Galaviz ; David Manzo ; Jayla Carlisle
== END 2023-01-23 15:58 | disposition home or self-care (01) | DRG 39 ==
LOC: ASU 05:37 → 1E 07:51

== ENCOUNTER 2023-03-19 05:29 | Inpatient (IN) ==
--- NOTE | 2023-03-01 14:22 | PAT Medication Instructions ---
Medication Instructions Date of Service March 01, 2023 Home Medications Medication Instructions Recorded oxycodone-acetaminophen 5 mg-325 1 tab PO Q6H PRN pain #20 tabs //23 mg tablet (Percocet) acetaminophen 325 mg capsule 650 mg PO Q6H PRN amlodipine 5 mg tablet 5 mg PO BID bupropion HCl 150 mg tablet,12 hr sustained-release 150 mg PO BID clopidogrel 75 mg tablet 75 mg PO QAM hydralazine 25 mg tablet 25 mg PO BID irbesartan 300 mg tablet 300 mg PO QAM loratadine 10 mg tablet 10 mg PO QAM metoprolol succinate 100 mg tablet,extended release 24 hr 100 mg PO QAM multivitamin 1 tab PO QAM aspirin 81 mg capsule 81 mg PO DAILY atorvastatin 20 mg tablet 20 mg PO QPM sodium chloride 1,000 mg soluble tablet 1,000 mg PO QAM calcium carbonate 300 mg (750 mg) chewable tablet (Tums E-X) 300 mg PO TID PRN oxycodone-acetaminophen 5 mg-325 mg tablet (Percocet) 1 tab PO Q6H PRN ASK your prescriber and surgeon clopidogrel 75 mg tablet 75 mg PO QAM aspirin 81 mg capsule 81 mg PO DAILY DO NOT take the morning of surgery irbesartan 300 mg tablet 300 mg PO QAM loratadine 10 mg tablet 10 mg PO QAM multivitamin 1 tab PO QAM sodium chloride 1,000 mg soluble tablet 1,000 mg PO QAM calcium carbonate 300 mg (750 mg) chewable tablet (Tums E-X) 300 mg PO TID PRN Take morning of surgery With a small sip of water, OTHERWISE NOTHING TO EAT OR DRINK AFTER MIDNIGHT: acetaminophen 325 mg capsule 650 mg PO Q6H PRN(if needed) amlodipine 5 mg tablet 5 mg PO BID bupropion HCl 150 mg tablet,12 hr sustained-release 150 mg PO BID hydralazine 25 mg tablet 25 mg PO BID metoprolol succinate 100 mg tablet,extended release 24 hr 100 mg PO QAM oxycodone-acetaminophen 5 mg-325 mg tablet (Percocet) 1 tab PO Q6H PRN(if needed) Take evening before surgery acetaminophen 325 mg capsule 650 mg PO Q6H PRN(if needed) amlodipine 5 mg tablet 5 mg PO BID bupropion HCl 150 mg tablet,12 hr sustained-release 150 mg PO BID hydralazine 25 mg tablet 25 mg PO BID atorvastatin 20 mg tablet 20 mg PO QPM oxycodone-acetaminophen 5 mg-325 mg tablet (Percocet) 1 tab PO Q6H PRN(if needed) Other Notes If you have any questions please call us at [phone] or [phone] or [phone] or [phone]
--- NOTE | 2023-03-14 08:52 | Anesthesiology Consultation ---
Date of Service March 14, 2023 Assessment & Plan (1) Encounter for pre-operative examination: - COVID screening: Per assessment on 03/01: No known COVID-19 positive contacts or current COVID-19 related symptoms. Travel screen negative. Patient at [facility]. Covid preop testing to be done DOS per PAT RN phone assessment- Covid order placed. - Cardiology note prior to right CEA (originally scheduled as TCAR, changed to CEA d/t insurance denial of TCAR): "..low to moderate risk...ok to stop Plavix x 5 days.." - S/P Right CEA (01/22/23): ETT 7.5 at [facility]. No issues noted per post-op anesthesia progress note. - Consents: Dementia. Per PAT RN phone assessment, facility staff member indicates daughter signs consents. Daughter or staff member will be present DOS. - Check BMP DOS (Not received with recent preop labs) Chart Review Chart Review: Acceptable Risk for Surgery and Patient NOT seen in Pre Admission Testing History Surgery Operation Date: 03/19/23 07:30 Proposed Procedures p Left Carotid Endarterectomy - Thierno Nicolas MD Height/Weight Height: 5 ft 7.5 in Weight: 88.088 kg Allergies Allergy/AdvReac Type Severity Reaction Status Date / Time Penicillins AdvReac Severe Rash Verified 03/01/23 14:03 lisinopril AdvReac Mild Cough Verified 03/01/23 14:03 Medications Home Medications Medication Instructions Recorded Confirmed Last Taken acetaminophen 325 mg capsule 650 mg PO Q6H PRN Pain 10/05/20 03/01/23 Unknown amlodipine 5 mg tablet 5 mg PO BID 10/05/20 03/01/23 01/21/23 05:00 bupropion HCl 150 mg tablet,12 hr 150 mg PO BID 10/05/20 03/01/23 01/22/23 05:00 sustained-release clopidogrel 75 mg tablet 75 mg PO QAM 10/05/20 03/01/23 01/17/23 hydralazine 25 mg tablet 25 mg PO BID 10/05/20 03/01/23 01/22/23 05:00 irbesartan 300 mg tablet 300 mg PO QAM 10/05/20 03/01/23 01/21/23 loratadine 10 mg tablet 10 mg PO QAM 10/05/20 03/01/23 01/21/23 metoprolol succinate 100 mg 100 mg PO QAM 10/05/20 03/01/23 01/22/23 05:00 tablet,extended release 24 hr multivitamin 1 tab PO QAM 10/05/20 03/01/23 01/17/23 aspirin 81 mg capsule 81 mg PO DAILY 10/31/22 03/01/23 01/17/23 atorvastatin 20 mg tablet 20 mg PO QPM 10/31/22 03/01/23 01/21/23 17:00 sodium chloride 1,000 mg soluble 1,000 mg PO QAM 10/31/22 03/01/23 01/17/23 tablet calcium carbonate 300 mg (750 mg) 300 mg PO TID PRN Heartburn 01/09/23 03/01/23 Unknown chewable tablet (Tums E-X) oxycodone-acetaminophen 5 mg-325 1 tab PO Q6H PRN pain #20 tabs 01/23/23 Unknown mg tablet (Percocet) Past Medical History Medical History Carotid artery stenosis 95% [place] stenosis, 90% LICA stenosis per 09/2022 vascular surgeon visit note S/P Right CEA 01/22/23, now scheduled for Left CEA Chronic obstructive pulmonary disease CVA (cerebral vascular accident) 5 years ago, denies residual effects Dementia Per staff member: daughter signs consents, daughter or staff member will be present DOS GERD (gastroesophageal reflux disease) intermittent, stable per pt Hyperlipidemia Hypertension controlled, stable per pt Hyponatremia Low 130s per chart review, WNL on 01/02/23 labs Major depressive disorder [facility] resident resident of [facility] Past Family History Family History Other Family history unknown Past Surgical History Surgical History (Updated 03/01/23 @ 14:01 by Marge Gleason RN) History of tonsillectomy S/P carotid endarterectomy 12/2022 Social History Smoking Status: Unknown if ever smoked Lab Results Anesthesia Preop Results Results Anesthesia Widget: Blood Type O Positive 01/22/23 Antibody Screen NEGATIVE 01/22/23 Testing Laboratory Results 03/13/23 WBC 4.5 H/H 12.1/36.2 PLATELETS 330 PT 10.2 PTT 29 INR 1.0 Electrocardiogram Date: 11/06/22 NSR, rate 61 bpm Chest X-Ray Date: 11/06/22 No pneumothorax. No pleural effusions. Small linear densities within the left mid to lower lung zones favor subsegmental atelectasis or scarring. Stable punctate calcified granuloma within the right lower lobe. No new focal lung consolidations to suggest a pneumonia. No evidence for pulmonary edema. The heart is normal in size. A loop recorder is noted. Old, healed left-sided rib fractures. There is also an old, healed distal left clavicle fracture. IMPRESSION: No acute process. Echocardiogram Date: 07/13/21 EF 60% Grade 1 diastolic dysfunction Mildly dilated RA Mild mitral regurgitation Moderate tricuspid regurgitation PASP 45 mmHg Stress Test Date: 09/04/21 Pharmacologic Mild movement and increased GI uptake. Good quality study No significant rest or stress associated MPI defects. No evidence of myocardial ischemia or infarct Low risk study EF 69% Normal LV wall motion Other Testing Neck CTA Date: 05/09/20 60% diameter stenosis of the right internal carotid artery origin.
[2023-03-19] MEDS ORDERED: CLINDA 900 MG **Premixed Bag IV SCH (06:00)
[2023-03-19] MEDS ORDERED: SODIUM CHLORIDE 0.9% 1000ML IV SCH (06:00)
[2023-03-19 06:12] LABS: BUN Creatinine Ratio 11.1 (10-20); Calcium 9.4 mg/dl (8.6-10.3); Creatinine Clr Calc Pharmacy 59.5 ml/min; Est GFR (African American) 64.3 ml/min; Est GFR (Non-African American) 55.5 ml/min; Potassium 4.3 mmol/L (3.5-5.1)
[2023-03-19] MEDS ORDERED: DEXAMETHASONE SOD INJ 4 MG/ML VIAL ONE (06:38)
[2023-03-19] MEDS ORDERED: ROCURONIUM BROMIDE 10 MG/ML 5 ML VIAL IV ONE ×5 (06:38→08:48)
[2023-03-19] MEDS ORDERED: PROPOFOL IV EMULSION 10 MG/ML 20 ML VIAL IV ONE (06:38)
[2023-03-19] MEDS ORDERED: fentaNYL citrate PF 100 MCG/2 ML VIAL ONE (06:38)
[2023-03-19] MEDS ORDERED: LIDOCAINE 2% 2 ML VIAL/AMP(20MG/ML) INFIL ONE (06:38)
[2023-03-19] MEDS ORDERED: ONDANSETRON INJ 2 MG/ML 2 ML VIAL ONE (06:38)
[2023-03-19] MEDS ORDERED: MIDAZOLAM HCL 1 MG/ML 2ML VIAL ONE (06:38)
[2023-03-19] MEDS ORDERED: HEPARIN SOD (PORCINE) 1000 UNIT/ML ONE (06:44)
[2023-03-19] MEDS ORDERED: PHENYLEPHRINE HCL 25 MG/250 ML NSS IV ONE (06:49)
[2023-03-19] MEDS ORDERED: NITROGLYCERIN/D5W 100 MCG/ML BTL ONE (06:50)
[2023-03-19] MEDS ORDERED: ONDANSETRON INJ 2 MG/ML 2 ML VIAL IV PRN (06:57)
[2023-03-19] MEDS ORDERED: ATROPINE SULFATE 0.1 MG/ML 10ML SYR IV PRN (06:57)
[2023-03-19] MEDS ORDERED: fentaNYL citrate PF 100 MCG/2 ML VIAL IV PRN (06:57)
[2023-03-19] MEDS ORDERED: KETOROLAC 30 MG/ML VIAL IV PRN (06:57)
[2023-03-19] MEDS ORDERED: LABETALOL HCL IV 5 MG/ML 20ML IV PRN (06:57)
[2023-03-19] MEDS ORDERED: BUPIVACAINE/EPINEPHRINE 0.5% MPF 1:200,000 30 ML VIAL ONE (07:05)
[2023-03-19] MEDS ORDERED: GELATIN SPONGE SZ 100 ONE ×2 (07:05→07:20)
[2023-03-19] MEDS ORDERED: ceFAZolin 330 MG/ML 1 GM VIAL ONE (07:05)
[2023-03-19] MEDS ORDERED: THROMBIN FOR SOLN 20000 UNIT KIT ONE (07:05)
[2023-03-19] MEDS ORDERED: HEPARIN (PORCINE) 1000 UNIT/ML 10 ML (CATH LAB USE ONLY) ONE (07:05)
[2023-03-19] MEDS ORDERED: LIDOCAINE 1% LOCAL 20 ML VIAL ONE (07:05)
--- NOTE | 2023-03-19 07:06 | History & Physical Report ---
Date of Service March 19, 2023 Assessment & Plan (1) Bilateral carotid artery stenosis: Plan: Patient now admitted for a left CEA. I have discussed the risks options and benefits of the procedure with the patient. The patient understands the risks options and benefits and agrees to the procedure. History of Present Illness Chief Complaint: Bilateral carotid artery stenosis Primary Care Provider: Daisha Montana PA-C Mr. Jones is a middle-aged male who presents for bilateral ICA stenosis noted on recent imaging. Patient states that he has a history of stroke in the past, but is unable to give any more specific history. He states that his symptoms were "falling into a chair" about 3 years ago. He denies any symptoms of cerebrovascular insufficiency in the recent past, including amaurosis, extremity weakness numbness or tingling, difficulty speaking or swallowing, facial droop. 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 Patient denies headache, fever, chest pain, shortness of breath, abdominal pain, nausea, vomiting, rest pain, claudication, nonhealing wounds or ulcers, other complaints. Allergies Allergy/AdvReac Type Severity Reaction Status Date / Time Penicillins AdvReac Severe Rash Verified 03/19/23 05:54 lisinopril AdvReac Mild Cough Verified 03/19/23 05:54 Home Medications Medication Instructions Recorded Confirmed Type acetaminophen 325 mg capsule 650 mg PO Q6H PRN Pain 10/05/20 03/19/23 History amlodipine 5 mg tablet 5 mg PO BID 10/05/20 03/19/23 History bupropion HCl 150 mg tablet,12 hr 150 mg PO BID 10/05/20 03/19/23 History sustained-release clopidogrel 75 mg tablet 75 mg PO QAM 10/05/20 03/19/23 History hydralazine 25 mg tablet 25 mg PO BID 10/05/20 03/19/23 History irbesartan 300 mg tablet 300 mg PO QAM 10/05/20 03/19/23 History loratadine 10 mg tablet 10 mg PO QAM 10/05/20 03/19/23 History metoprolol succinate 100 mg 100 mg PO QAM 10/05/20 03/19/23 History tablet,extended release 24 hr multivitamin 1 tab PO QAM 10/05/20 03/19/23 History aspirin 81 mg capsule 81 mg PO DAILY 10/31/22 03/19/23 History atorvastatin 20 mg tablet 20 mg PO QPM 10/31/22 03/19/23 History sodium chloride 1,000 mg soluble 1,000 mg PO QAM 10/31/22 03/19/23 History tablet calcium carbonate 300 mg (750 mg) 300 mg PO TID PRN Heartburn 01/09/23 03/19/23 History chewable tablet (Tums E-X) Past Med/Surg History Medical History Carotid artery stenosis 95% [place] stenosis, 90% LICA stenosis per 09/2022 vascular surgeon visit note S/P Right CEA 01/22/23, now scheduled for Left CEA Chronic obstructive pulmonary disease CVA (cerebral vascular accident) 5 years ago, denies residual effects Dementia Per staff member: daughter signs consents, daughter or staff member will be present DOS GERD (gastroesophageal reflux disease) intermittent, stable per pt Hyperlipidemia Hypertension controlled, stable per pt Hyponatremia Low 130s per chart review, WNL on 01/02/23 labs Major depressive disorder [facility] resident resident of [facility] Surgical History History of tonsillectomy S/P carotid endarterectomy 12/2022 Family History Other Family history unknown Social History Smoking Status: Unknown if ever smoked Preferred Language: [place] Communication Ability: Effective Communication Ability Comment: per [facility] pt is of sound mind to sign consents [employer] Blank Handler Required: No Current Living Situation: Residential Current Living Situation Comment: RESIDENT OF [facility] Assistive Devices: None Review of Systems All systems reviewed & are unremarkable except as noted in HPI & below Physical Exam Physical Exam: Constitutional: In general patient is a healthy-appearing well-nourished well- developed middle-aged male in no distress. He is alert and oriented without any focal deficits. He is a poor historian. His head is normocephalic and atraumatic. His neck is supple nontender with midline trachea. His neck incision is nicely healed. There is a faint bilateral carotid bruit. His heart is regular, his lungs are decreased throughout with sparse expiratory wheezing but clear otherwise. His abdomen is soft nontender with normoactive bowel sounds in all 4 quadrants. Brachial radial and femoral pulses are +3. Lower extremity distal pulses are +2 in the left +1 on the right. He has brisk capillary refill and no sign of distal ischemia. There is no edema. Results & Data Vital Signs (Past 12 Hours) Vital Signs Temp Pulse Resp BP Pulse Ox O2 Del Method 03/19/23 06:00 Room Air 03/19/23 06:00 36.5 C 63 20 140/82 98 Room Air
[2023-03-19] MEDS ORDERED: PHENYLEPHRINE 100MCG/ML 5ML SYR ONE (08:48)
[2023-03-19] MEDS ORDERED: PROTAMINE SULFATE 10 MG/ML 5 ML VIAL IV ONE (09:10)
[2023-03-19] MEDS ORDERED: GLYCOPYRROLATE 0.2 MG/ML VIAL ONE (09:22)
[2023-03-19] MEDS ORDERED: NEOSTIGMINE METHYLSULFATE 1 MG/ML 10ML VIAL ONE (09:22)
--- NOTE | 2023-03-19 09:36 | Operative Report ---
Post Operative Report Pre & Post Diagnosis Operation Date: 03/19/23 07:30 Pre-Op Diagnosis: Left Internal Carotid Arterty Stenosis Post-Op Diagnosis: Left Internal Carotid Arterty Stenosis I identified the patient and participated in the time-out.: Yes Procedure Operation Date: 03/19/23 07:30 Actual Procedures p Left Carotid Endarterectomy with bovine patch.(Left) - Thierno Nicolas MD Surgeon Thierno Nicolas MD Starting Sheet Tank Operator David,PAC Estimated Blood Loss 50 Findings Consistent with Post-Op Diagnosis Specimens carotid plaque Anesthesia Type General Complications none Disposition Accompanied Patient To Recovery: No Disposition: Recovery Room Indications This is a 62-year-old gentleman who had severe stenosis of both internal carotid arteries. He underwent a right carotid endarterectomy earlier this year without any complications. He is now admitted for a left-sided carotid endarterectomy due to his significant narrowing. He was a TCAR candidate but was not approved by his insurance. I have discussed the risks options and benefits of the procedure with the patient. The patient understands the risks options and benefits and agrees to the procedure. Description of Procedure The patient was taken to the operating room and placed in supine position. After general anesthesia was accomplished the left side of the neck was prepped and draped in a sterile manner. The patient was identified and a timeout performed. A longitudinal neck incision was then made coursing along the medial border of the sternocleidomastoid muscle. The incision was taken down through the platysmal layer. The facial vein was identified, ligated, and divided. The common carotid artery was then seen. It was dissected free down to the omohyoid muscle. The dissection was carried upward until the external carotid artery and superior thyroid artery was seen. The superior thyroid artery was slung with a 2-0 silk suture. The external carotid was slung with a red rubber vessel loop. Next the dissection was carried up along the internal carotid artery. This was carried upward to beyond the area of narrowing. The hypoglossal nerve was preserved. The patient was heparinized. After adequate heparinization was accomplished, the internal, external, and common carotid arteries were clamped. A longitudinal arteriotomy was started on the common carotid artery and extended upward along the internal carotid artery to a point beyond the area of narrowing. There was calcified plaque of the internal carotid artery origin causing approximately 85-90% narrowing. A Doppler shunt was then placed in the internal, followed by the common carotid artery and held in place with Jerry clamps. There was good back bleeding seen from the internal carotid artery. The endarterectomy was then started in the appropriate plane on the common carotid artery. This was carried upward and the external carotid was everted and endarterectomized. The endarterectomy was then carried up along the internal carotid artery till a nice feathering breakoff point was accomplished beyond the end of the plaque. The endarterectomy was then carried down further on the common carotid artery. At end of the arteriotomy, the plaque was then transected. Under loop magnification, all loose debris and flaps were removed. There is no distal flap seen at the end of the endarterectomy site but due to some slight thickness in the plaque for tacking sutures were placed along the breakoff point.. The arteriotomy was then closed using a bovine patch and a running 6 oh suture. This was done in the usual vascular fashion. Prior to completing the closure, the doppler shunt was removed and the internal and common carotid arteries were reclamped. Backbleeding and forward bleeding was allowed to occur. The flow surface was irrigated with heparinized saline. The final few sutures were then placed and securely tied. Clamps were then removed off the external and common carotid arteries. The clamp was then removed the internal carotid artery. Good distal flow was seen. Adequate hemostasis was seen of the patch. The wound was inspected and adequate hemostasis was obtained. The wound was irrigated with saline solution. It was then closed with a running 3-0 Vicryl suture for the platysmal layer and a 4-0 subcuticular Vicryl suture for the skin edges. Dermabond was used for dressing. The patient left the operation room in satisfactory condition and tolerated the procedure well. All needle and sponge counts were correct at the end of the procedure. Shirley Dial Pac assisted due to lack of resident availability and was necessary for prepping, draping, retraction, wound closure defects, subQ and skin closure and was necessary for the case. I attest to the content of the Intraoperative Record and any orders documented therein. Any exceptions are noted below.
--- NOTE | 2023-03-19 11:13 | Anesthesiology Progress Note ---
Date of Service March 19, 2023 Anesthesia Post Procedure Vital Signs Vital Signs: Temp Pulse Pulse Resp BP BP Pulse Ox 03/19/23 11:05 36.4 C L 55 L 12 105/51 L 95 03/19/23 10:55 55 L 12 108/52 L 96 03/19/23 10:45 55 L 11 L 106/52 L 96 03/19/23 10:35 54 L 12 103/49 L 96 03/19/23 10:25 54 L 12 102/48 L 96 03/19/23 10:15 57 L 16 96/61 L 98 03/19/23 10:05 57 L 12 104/61 97 03/19/23 09:56 36 C L 62 16 117/54 L 96 03/19/23 06:00 03/19/23 06:00 36.5 C 63 20 140/82 98 O2 Del Method O2 Flow Rate 03/19/23 11:05 Nasal Cannula 3 03/19/23 10:55 Nasal Cannula 3 03/19/23 10:45 Nasal Cannula 3 03/19/23 10:35 Nasal Cannula 3 03/19/23 10:25 Nasal Cannula 3 03/19/23 10:15 Nasal Cannula 3 03/19/23 10:05 Oxymask 6 03/19/23 09:56 Oxymask 6 03/19/23 06:00 Room Air 03/19/23 06:00 Room Air Transfer of Care Handoff Completed per policy Notes Mental Status: alert / awake / arousable Patient Amnestic to Procedure: Yes Nausea / Vomiting: adequately controlled Pain: adequately controlled Airway Patency, RR, SpO2: stable & adequate BP & HR: stable & adequate Hydration State: stable & adequate Anesthetic Complications: no major complications apparent
[2023-03-19] MEDS: SODIUM CHLORIDE 0.9% 1000ML 1,000 ML IV SCH ×2 (11:25→18:24)
[2023-03-19] MEDS ORDERED: oxyCODONE/ACETAMINOPHEN 5mg/325mg TAB PO PRN (11:26)
[2023-03-19] MEDS ORDERED: MoRPHine SULFATE 4 MG/ML 1 ML CARP\\VIAL IV PRN (11:26)
[2023-03-19] MEDS ORDERED: ACETAMINOPHEN 325 MG TAB PO PRN (11:28)
[2023-03-19] MEDS ORDERED: CALCIUM CARBONATE 500 MG CHEWABLE TAB PO PRN (11:54)
--- NOTE | 2023-03-19 14:06 | Critical Care Consultation ---
Date of Consultation March 19, 2023 Assessment & Plan (1) Alcohol use disorder: (2) Memory impairment: (3) Bilateral carotid artery stenosis: (4) Hypertension: Supervising Physician Co-Signing Physician Notes The patient is doing well post left carotid endarterectomy. The A-line is still in place but he is not hypertensive postoperatively. He is on minimal supplemental oxygen with good saturation. 1. Neuropsych: The patient has some underlying dementia and seems very reticent. I was having a conversation with him about smoking abstinence as he continues to smoke 10 cigarettes a day and does not seem to have an interest in stopping. Oxycodone for pain but we should really try to focus on using Tylenol if possible. 2. Cardiovascular: The stay patient is status post left carotid endarterectomy without any untoward effects. Blood pressure and heart rate are stable. He will continue with his aspirin and Plavix per his home medication. He will continue on metoprolol succinate to 100 mg every morning. 3. Pulmonary: Try to wean down supplemental oxygen and turn off. Smoking cessation was suggested but not well received. 4. GI: Advance diet as tolerates. 5. Renal: Some increased creatinine and he is on losartan as an outpatient and will follow though he likely has some chronic kidney disease. We will follow his hyponatremia. 6. ID: No active issues. 7: Heme: The patient remains on aspirin and Plavix and I will clarify with the surgeon whether or not they want heparin while he is still in bed. To the A- line. 8. Endocrine: Mild glucose elevation and will follow carefully. History of Present Illness Reason for Consultation: The patient was admitted to the intensive care unit postoperatively after a left carotid endarterectomy. He had a previous right carotid endarterectomy 1 month ago and he tolerated the procedure quite well and was discharged postop day 1 to home without complications. He now presents to the ICU after surgery extubated and awake and interactive. He is already drinking. He is now hemodynamically stable. Requesting Physician: Dr. Thierno Nicolas. Attending Physician: Thierno Nicolas MD History of Present Illness Proximately 3 to 5 years ago the patient was thought to have had either a TIA or a stroke falling back into his chair. Carotid ultrasound that showed 95% occlusion of his right internal carotid artery and 80 to 90% of his left. He successfully underwent a right carotid endarterectomy 1 month ago and now presents for the contralateral correction. Allergies Allergy/AdvReac Type Severity Reaction Status Date / Time Penicillins AdvReac Severe Rash Verified 03/19/23 05:54 lisinopril AdvReac Mild Cough Verified 03/19/23 05:54 Home Medications Medication Instructions Recorded Confirmed Type acetaminophen 325 mg capsule 650 mg PO Q6H PRN Pain 10/05/20 03/19/23 History amlodipine 5 mg tablet 5 mg PO BID 10/05/20 03/19/23 History bupropion HCl 150 mg tablet,12 hr 150 mg PO BID 10/05/20 03/19/23 History sustained-release clopidogrel 75 mg tablet 75 mg PO QAM 10/05/20 03/19/23 History hydralazine 25 mg tablet 25 mg PO BID 10/05/20 03/19/23 History irbesartan 300 mg tablet 300 mg PO QAM 10/05/20 03/19/23 History loratadine 10 mg tablet 10 mg PO QAM 10/05/20 03/19/23 History metoprolol succinate 100 mg 100 mg PO QAM 10/05/20 03/19/23 History tablet,extended release 24 hr multivitamin 1 tab PO QAM 10/05/20 03/19/23 History aspirin 81 mg capsule 81 mg PO DAILY 10/31/22 03/19/23 History atorvastatin 20 mg tablet 20 mg PO QPM 10/31/22 03/19/23 History sodium chloride 1,000 mg soluble 1,000 mg PO QAM 10/31/22 03/19/23 History tablet calcium carbonate 300 mg (750 mg) 300 mg PO TID PRN Heartburn 01/09/23 03/19/23 History chewable tablet (Tums E-X) Patient History Medical History Carotid artery stenosis 95% [place] stenosis, 90% [place] stenosis per 09/2022 vascular surgeon visit note S/P Right CEA 01/22/23, now scheduled for Left CEA Chronic obstructive pulmonary disease CVA (cerebral vascular accident) 5 years ago, denies residual effects Dementia Per staff member: daughter signs consents, daughter or staff member will be present DOS GERD (gastroesophageal reflux disease) intermittent, stable per pt Hyperlipidemia Hypertension controlled, stable per pt Hyponatremia Low 130s per chart review, WNL on 01/02/23 labs Major depressive disorder detention resident resident of [facility] Surgical History History of tonsillectomy S/P carotid endarterectomy 12/2022 Family History Other Family history unknown Social History (Updated 03/19/23 @ 13:55 by Cassi Samaniego MD) Smoking Status: Current every day smoker Preferred Language: Brazilian Communication Ability: Effective Communication Ability Comment: per [facility] pt is of sound mind to sign consents Security Messenger Required: No Current Living Situation: [facility] Current Living Situation Comment: RESIDENT OF [facility] Assistive Devices: None Review of Systems Review of Systems: The patient is feeling well after the procedure. There is minimal pain. He has no chest pain or palpitations or shortness of breath nausea vomiting or diarrhea. He is able to move all of his extremities. Complete review of systems is negative. He is just frustrated that he is drinking with his left hand as the A-line is still in place in his right wrist he is right-hand dominant. Physical Exam Physical Exam: The patient is awake alert and interactive. He is somewhat reticent. Neck is supple without adenopathy. There is a healed right carotid endarterectomy scar from last month's procedure. There is a fresh left carotid endarterectomy scar without any exudate or erythema. Lungs are clear auscultation bilaterally heart is regular rate and rhythm without murmurs rubs or gallops abdomen is slightly distended but nontender extremities without clubbing cyanosis or edema he is moving all of his extremities and able to handgrip bicep and tricep bilaterally just limited by the right wrist A-line. Results & Data Results & Data Vital Signs (Past 12 Hours) Vital Signs Temp Pulse Pulse Pulse Resp BP BP 03/19/23 13:30 67 12 03/19/23 13:30 136/70 03/19/23 13:06 125/73 03/19/23 13:06 65 17 03/19/23 13:00 63 03/19/23 12:30 59 L 15 03/19/23 12:30 122/76 03/19/23 12:00 71 17 03/19/23 12:00 110/64 03/19/23 11:30 58 L 8 L 07/25/23 11:30 111/63 03/19/23 11:26 60 13 03/19/23 11:26 120/62 03/19/23 11:24 112/67 03/19/23 11:24 62 12 03/19/23 11:23 59 L 14 03/19/23 11:23 114/67 03/19/23 11:22 61 14 03/19/23 11:22 124/65 03/19/23 11:20 03/19/23 11:39 57 L 03/19/23 11:05 36.4 C L 55 L 12 03/19/23 10:55 55 L 12 03/19/23 10:45 55 L 11 L 03/19/23 10:35 54 L 12 03/19/23 10:25 54 L 12 03/19/23 10:15 57 L 16 03/19/23 10:05 57 L 12 03/19/23 09:56 36 C L 62 16 03/19/23 06:00 03/19/23 06:00 36.5 C 63 20 140/82 BP Pulse Ox O2 Del Method O2 Flow Rate 03/19/23 13:30 97 Room Air 03/19/23 13:30 03/19/23 13:06 03/19/23 13:06 97 Room Air 03/19/23 13:00 96 Room Air 03/19/23 12:30 96 Room Air 03/19/23 12:30 03/19/23 12:00 95 Room Air 03/19/23 12:00 03/19/23 11:30 95 Room Air 03/19/23 11:30 03/19/23 11:26 94 Room Air 03/19/23 11:26 03/19/23 11:24 03/19/23 11:24 95 Room Air 03/19/23 11:23 95 Room Air 03/19/23 11:23 03/19/23 11:22 95 Room Air 03/19/23 11:22 03/19/23 11:20 92 Room Air 03/19/23 11:39 03/19/23 11:05 105/51 L 95 Nasal Cannula 3 03/19/23 10:55 108/52 L 96 Nasal Cannula 3 03/19/23 10:45 106/52 L 96 Nasal Cannula 3 03/19/23 10:35 103/49 L 96 Nasal Cannula 3 03/19/23 10:25 102/48 L 96 Nasal Cannula 3 03/19/23 10:15 96/61 L 98 Nasal Cannula 3 03/19/23 10:05 104/61 97 Oxymask 6 03/19/23 09:56 117/54 L 96 Oxymask 6 03/19/23 06:00 Room Air 03/19/23 06:00 98 Room Air Laboratory Results Laboratory Results Sodium 131 mmol/L (136-145) L 03/19/23 05:42 Potassium 4.3 mmol/L (3.5-5.1) 03/19/23 05:42 Chloride 101 mmol/L (98-107) 03/19/23 05:42 Carbon Dioxide 23 mmol/L (21-32) 03/19/23 05:42 Anion Gap 7 (3-11) 03/19/23 05:42 BUN 15 mg/dl (6-23) 03/19/23 05:42 Creatinine 1.35 mg/dl (0.6-1.4) 03/19/23 05:42 Est Cr Clr Drug Dosing 59.5 ml/min 03/19/23 05:42 Est GFR ( Amer) 64.3 ml/min 03/19/23 05:42 Est GFR (Non-Af Amer) 55.5 ml/min 03/19/23 05:42 BUN/Creatinine Ratio 11.1 (10-20) 03/19/23 05:42 Glucose 99 mg/dl (70-99(Fasting)) 03/19/23 05:42 POC Glucose 142 mg/dl (70-99) H 03/19/23 11:23 Calcium 9.4 mg/dl (8.6-10.3) 03/19/23 05:42 Nasal Screen MRSA (PCR) Negative (Negative) 03/19/23 Unknown SARS-CoV-2, RNA, NAAT NEGATIVE (NEGATIVE) 03/19/23 Unknown Blood Type O Positive 03/19/23 05:42 Antibody Screen NEGATIVE 03/19/23 05:42 Medications Administered Current Inpatient Medications Acetaminophen (Acetaminophen 325 Mg Tab) 650 mg PO Q6H PRN PRN Reason: Pain Stop: 04/18/23 11:27 Amlodipine Besylate (Amlodipine Besylate 5 Mg Tab) 5 mg PO BID ERIN Stop: 04/18/23 20:59 Aspirin (Aspirin 81 Mg Ectab) 81 mg PO DAILY [facility] Stop: 04/19/23 08:59 Atorvastatin Calcium (Atorvastatin 20 Mg Tab) 20 mg PO QPM [facility] Stop: 04/18/23 20:59 Bupropion HCl (Bupropion Sr 150 Mg Tabcr) 150 mg PO BID [facility] Stop: 04/18/23 20:59 Calcium Carbonate (Calcium Carbonate 500 Mg Chewable Tab) 500 mg PO TID PRN PRN Reason: Heartburn Stop: 04/18/23 11:53 Clopidogrel Bisulfate (Clopidog[facility]ulfate 75 Mg Tab) [facility]: 04/19/23 08:59 Hydralazine HCl (Hydralazine Hcl 25 Mg Tab) 25 mg PO BID [facility] Stop: 04/18/23 20:59 Clindamycin Phosphate (Cleocin/D5w) 900 mg in 50 mls @ 100 mls/hr IV PREOP [facility]; Protocol Stop: 03/19/23 18:00 Last Admin: 03/19/23 07:29 Dose: 100 mls/hr Clindamycin Phosphate (Cleocin/D5w) 600 mg in 50 mls @ 100 mls/hr IV Q8H [facility] Stop: 03/19/23 23:29 Sodium Chloride (Nss 1000ml) 1,000 mls @ 125 mls/hr IV .Q8H [facility] Stop: 04/18/23 11:25 Last Admin: 03/19/23 11:25 Dose: 125 mls/hr Loratadine (Loratadine 10 Mg Tab) [facility] Stop: 04/19/23 08:59 Losartan Potassium (Losartan Potassium 50 Mg Tab) [facility] Stop: 04/19/23 08:59 Metoprolol Succinate (Metoprolol Succ 50mg Ext Rel Tab) 100 mg PO [facility] Stop: 04/19/23 08:59 Morphine Sulfate (Morphine Sulfate 4 Mg/Ml 1 Ml Carp\Vial) 1 - 4 mg IV Q2H PRN PRN Reason: Severe Pain (Scale 7, 8, 9,10) Stop: 04/02/23 11:25 Multivitamins (Multivitamin Tab) [facility] Stop: 04/19/23 08:59 Oxycodone/Acetaminophen (Oxycodone/Acetaminophen 5mg/325mg Tab) 1 - 2 tab PO Q4H PRN PRN Reason: Pain (Scale 3,4,5,6) Stop: 04/02/23 11:25 Sodium Chloride (Sodium Chloride 1 Gm Tablet) 1 gm PO QAM ERIN Stop: 04/19/23 08:59 Coding Level of Care Code 08259 IN/OBS CONSULT LVL 3,45M History Problem Focused Exam Problem Focused Diagnoses Alcohol use disorder F10.90 Memory impairment R41.3 Bilateral carotid artery stenosis I65.23 Hypertension I10 Time Spent (min) 30
[2023-03-19] MEDS: CLINDAMYCIN/D5W 600 MG/50 ML BAG IV SCH ×2 (16:05→22:21)
[2023-03-19] MEDS: hydrALAZINE HCL 25 MG TAB PO SCH (20:27)
[2023-03-19] MEDS: buPROPion SR 150 MG TABCR PO SCH (20:27)
[2023-03-19] MEDS: amLODIPine BESYLATE 5 MG TAB PO SCH (20:27)
[2023-03-19] MEDS ORDERED: ATORVASTATIN 20 MG TAB PO SCH (21:00)
[2023-03-20] MEDS: SODIUM CHLORIDE 0.9% 1000ML 1,000 ML IV SCH (05:13)
[2023-03-20] MEDS: amLODIPine BESYLATE 5 MG TAB PO SCH (08:12)
[2023-03-20] MEDS: buPROPion SR 150 MG TABCR PO SCH (08:13)
[2023-03-20] MEDS: hydrALAZINE HCL 25 MG TAB PO SCH (08:13)
[2023-03-20] MEDS ORDERED: TAMSULOSIN HCL 0.4 MG CAP PO ONE (08:35)
--- NOTE | 2023-03-20 08:35 | Surgery Progress Note ---
Date of Service March 20, 2023 Assessment & Plan (1) S/P carotid endarterectomy: Plan: Doing well post op left CEA Will d/c today (2) Postprocedural urinary retention: Plan: Will start on flomax and have him follow up with urology. Admission and Anticipated Discharge Date Admission Date: March 19, 2023 Subjective Patient without complaint except for difficulty voiding which is an ongoing problem and occurred during his last admission. Physical Exam Constitutional: WD/WN, vitals as above Neck: trachea midline Respiratory: normal respiratory effort; no respiratory distress Cardiovascular: Rate/Rhythm: regular rate and regular rhythm Extremities: normal capillary refill Skin: + incision (dry and clean) Neurologic: CN's II-XI intact bilaterally and moves all extremities Psychiatric: Orientation: alert and oriented x 3 Results & Data Vital Signs (Past 12 Hours) Vital Signs Temp Pulse Resp BP Pulse Ox O2 Del Method O2 Flow Rate 03/20/23 08:00 18 95 Room Air 03/20/23 08:00 121/69 03/20/23 07:25 73 03/20/23 07:00 68 12 125/66 96 Room Air 03/20/23 06:00 82 14 127/63 95 Nasal Cannula 2 03/20/23 05:00 80 18 129/53 L 95 Nasal Cannula 2 03/20/23 04:00 37.2 C 81 12 127/68 93 Nasal Cannula 2 03/20/23 03:00 80 16 120/52 L 93 Room Air 03/20/23 02:00 83 12 122/49 L 92 Room Air 03/20/23 01:00 83 13 114/55 L 92 Room Air 03/20/23 00:00 37 C 76 13 101/48 L 92 Room Air 03/19/23 23:35 82 14 105/57 L 94 Room Air 03/19/23 23:00 77 12 92/50 L 92 Room Air 03/19/23 22:06 156/87 H 03/19/23 22:06 78 13 94 03/19/23 22:00 74 13 156/87 H 95 Room Air 03/19/23 21:00 69 12 146/69 H 96 Room Air
--- NOTE | 2023-03-20 08:43 | Discharge Summary ---
Date of Service March 20, 2023 Admission HPI Per Admitting Provider Mr. Jones is a middle-aged male who presents for bilateral ICA stenosis noted on recent imaging. Patient states that he has a history of stroke in the past, but is unable to give any more specific history. He states that his symptoms were "falling into a chair" about 3 years ago. He denies any symptoms of cerebrovascular insufficiency in the recent past, including amaurosis, extremity weakness numbness or tingling, difficulty speaking or swallowing, facial droop. 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 Patient denies headache, fever, chest pain, shortness of breath, abdominal pain, nausea, vomiting, rest pain, claudication, nonhealing wounds or ulcers, other complaints. Admission Exam Per Admitting Provider Constitutional: In general patient is a healthy-appearing well-nourished well- developed middle-aged male in no distress. He is alert and oriented without any focal deficits. He is a poor historian. His head is normocephalic and atraumatic. His neck is supple nontender with midline trachea. His neck incision is nicely healed. There is a faint bilateral carotid bruit. His heart is regular, his lungs are decreased throughout with sparse expiratory wheezing but clear otherwise. His abdomen is soft nontender with normoactive bowel sounds in all 4 quadrants. Brachial radial and femoral pulses are +3. Lower extremity distal pulses are +2 in the left +1 on the right. He has brisk capillary refill and no sign of distal ischemia. There is no edema. Principal Diagnosis Left internal carotid artery stenosis with left carotid endarterectomy Discharge Exam Constitutional WD/WN, vitals as above Neck trachea midline Respiratory normal respiratory effort; no respiratory distress Cardiovascular Rate/Rhythm: regular rate and regular rhythm Extremities: normal capillary refill Skin + incision (dry and clean) Neurologic CN's II-XI intact bilaterally and moves all extremities Psychiatric Orientation: alert and oriented x 3 Discharge Data Allergies Allergy/AdvReac Type Severity Reaction Status Date / Time Penicillins AdvReac Severe Rash Verified 03/19/23 05:54 lisinopril AdvReac Mild Cough Verified 03/19/23 05:54 Consultations 03/19/23 11:26 Consult Distillation Operator Helper Routine Procedures Performed Operation Date: 03/19/23 07:30 Actual Procedures p Left Carotid Endarterectomy with bovine patch.(Left) - Thierno Nicolas MD Hospital Course (1) S/P carotid endarterectomy: Doing well post op left CEA Will d/c today (2) Postprocedural urinary retention: Will start on flomax and have him follow up with urology. Total Time Total Time Spent Total Time Spent (In Minutes): 0 Discharge Plan Discharge Items Patient Disposition: Home - Self-Care Reason For Visit: Left Internal Carotid Arterty Stenosis Discharge Diagnosis: Left internal carotid artery stenosis Activity: Per Instructions section Non-emergency contact: Surgeon Call non-emergency contact if: your temperature is above 101.5, your wound has increased redness, your wound has increased drainage and your wound pain has increased Follow-up/Referrals: [facility] [Provider Group] (urinary retention and frequency) Daisha Montana PA-C [Primary Care Provider] - Diet: Heart Healthy Addtl Attending Provider Instructions: SPECIAL CARE INSTRUCTIONS: Medications: * Continue to take Aspirin as directed. Incision Care: * You may shower, but do not rub incision. You may let the warm soapy water run over it. Be sure to dry the incision well after bathing. * Do not shave directly over the incision until it is healed. * DO NOT IMMERSE THE INCISION IN A TUB/POOL/etc. UNTIL HEALED. Restrictions: * Do not drive for at least one week or if you are still taking any narcotic pain medication. * Do not lift anything heavier than a gallon of milk for one week after going home. Possible Complications: * Numbness - It is normal to have some numbness around the incision. Numbness can extend beyond the incision to areas of the neck, ear and face. The numbness is due to bruising of nerves during the surgery and will gradually improve over a period of months. * Hoarseness/Difficulty Speaking and Swallowing - The bruising of nerves in the neck can also cause a hoarse voice, difficulty speaking or swallowing. This may improve over time, HOWEVER, if it continues for more than a few days please contact our office ([phone]). * Excessive Swelling - There will be some swelling immediately after surgery which usually resolves within one week. If you notice that the swelling is getting worse, notify your surgeon ([phone]). * Drainage/Bleeding - If there is any drainage or bleeding, it should be a very small amount (less than a teaspoon per day). If you have excessive bleeding or drainage from the incision, call your surgeon ([phone]) right away. ACTIVATION OF EMERGENCY MEDICAL SYSTEM: Call 911, immediately, if you experience any of the following: Warning Signs and Symptoms of Stroke: * Sudden numbness or weakness of the face, arm or leg, especially on one side of the body * Sudden confusion, trouble speaking or understanding * Sudden trouble seeing in one or both eyes * Sudden trouble walking, dizziness, loss of balance or coordination * Sudden severe headache with no cause Do not delay calling 911 if you experience any warning signs or symptoms of a stroke. Delay in seeking medical attention may affect what treatments can be given to you. Risk Factors for Stroke: You can reduce your chances of stroke by working with your medical provider to adopt a healthy lifestyle. Some specific ways to lower your chance of stroke are: * If you are a smoker, now is the time to stop smoking cigarettes * If you are diabetic, improve the control of your blood sugars * Avoid excessive amounts of alcohol * Control high blood pressure * Lose weight if you are overweight * Be sure to lead an active lifestyle * Eat a healthy diet low in salt, cholesterol and fat You should know about other risk factors for stroke that you are unable to control. These include: * Age 55 years or older * Male gender * Certain racial groups: , or / * Family History of Stroke, Mini stroke or Heart Attack * Sickle Cell Disease You will be receiving a call from the Vascular Surgery Nurse after you are discharged. FOLLOW UP VISIT: It is important for you to keep your follow up appointments with your medical provider. Keep any scheduled doctor appointments. Call [phone] to schedule a follow up appointment if one not already scheduled. Pending Studies at Discharge: No Stand-Alone Forms: My [employer], Smoking Cessation Medications and DC Order Prescriptions: New oxycodone-acetaminophen [Percocet] 5-325 mg tablet 1 tab PO Q8H PRN (Reason: pain) Qty: 10 0RF tamsulosin [Flomax] 0.4 mg capsule 0.4 mg PO DAILY Qty: 30 0RF Continued bupropion HCl 150 mg tablet sustained-release 12 hr 150 mg PO BID clopidogrel 75 mg tablet 75 mg PO QAM irbesartan 300 mg tablet 300 mg PO QAM loratadine 10 mg tablet 10 mg PO QAM metoprolol succinate 100 mg tablet extended release 24 hr 100 mg PO QAM multivitamin Tablet 1 tab PO QAM acetaminophen 325 mg capsule 650 mg PO Q6H PRN (Reason: Pain) amlodipine 5 mg tablet 5 mg PO BID hydralazine 25 mg tablet 25 mg PO BID atorvastatin 20 mg Tablet 20 mg PO QPM sodium chloride 1,000 mg Tablet,Soluble 1,000 mg PO QAM aspirin 81 mg Capsule 81 mg PO DAILY calcium carbonate [Tums E-X] 300 mg (750 mg) Tablet,Chewable 300 mg PO TID PRN (Reason: Heartburn) Discharge Orders: Discharge Order (Routine); Ordered 03/20/23 Ordered By: Thierno Nicolas Admission Data Admit Date/Time: 03/19/23 09:26 Attending Provider: Thierno Nicolas Admit Provider: Thierno Nicolas Primary Care Provider: Daisha Montana Other Providers: Duran Baer ; Daniel Magdaleno ; Jairo Guerra ; Zoran Cates ; Jeremy Donnelly ; Darío Dykes ; Cecilia Galaviz ; David Manzo ; Jayla Carlisle ; Cassi Samaniego
[2023-03-20] MEDS ORDERED: LORATADINE 10 MG TAB PO SCH (09:00)
[2023-03-20] MEDS ORDERED: CLOPIDOGREL BISULFATE 75 MG TAB PO SCH (09:00)
[2023-03-20] MEDS ORDERED: MULTIVITAMIN TAB PO SCH (09:00)
[2023-03-20] MEDS ORDERED: ASPIRIN 81 MG ECTAB PO SCH (09:00)
[2023-03-20] MEDS ORDERED: METOPROLOL SUCC 50MG EXT REL TAB PO SCH (09:00)
[2023-03-20] MEDS ORDERED: LOSARTAN POTASSIUM 50 MG TAB PO SCH (09:00)
[2023-03-20] MEDS ORDERED: SODIUM CHLORIDE 1 GM TABLET PO SCH (09:00)
--- NOTE | 2023-03-20 10:16 | Critical Care Progress Note ---
Date of Service March 20, 2023 Assessment & Plan (1) Postprocedural urinary retention: Plan: The patient is doing extremely well post surgery except for urinary retention which occurred during his last operative procedure. He required several straight caths overnight. Though at 1 point he voided 150 mL there was still approximately 500 mL retained in his bladder. 1. The patient has some memory issues and that is an ongoing issue preprocedure. It will be followed up as an outpatient. No strokelike symptoms or neurologic concerns after the left carotid endarterectomy. 2. No postoperative hypertension and the patient is resumed on his home antihypertensives of losartan, hydralazine and amlodipine as well as metoprolol succinate. 3. From a pulmonary perspective there is no active issues and he is on room air saturating well. 3. The patient was resumed on a cardiac diet. 4. Urologically he is having some urinary retention. His blood pressure tolerates initiating Flomax for being discharged to home. Perhaps he should see an outpatient urologist and also consider some Proscar. He has no urinary symptoms to suggest a urinary tract infection as a cause of his retention and review of his medications other than the Wellbutrin is really not on any anticholinergic medications. We will try to limit narcotics as well and encourage ambulation and standing with voiding. 5. ID no active issues. No symptoms of urinary tract infection. He is afeb rile. 6. No active hematological issues and the patient will be discharged on aspirin. 7. Endocrine: No active issues. The patient is being discharged to home per vascular surgery to follow-up as an outpatient. (2) Memory impairment: (3) Bilateral carotid artery stenosis: (4) S/P carotid endarterectomy: (5) CVA (cerebral vascular accident): Admission and Anticipated Discharge Date Admission Date: March 19, 2023 Subjective Patient without complaint except for difficulty voiding which is an ongoing problem and occurred during his last admission. He denies any chest pain or shortness of breath nausea vomiting or diarrhea. He has no dysuria. No cough or phlegm production. No difficulty moving any of his extremities or dysarthria or dysphagia. Physical Exam Physical Exam: The patient is awake alert and interactive. He is somewhat reticent. Neck is supple without adenopathy. There is a healed right carotid endarterectomy scar from last month's procedure. There is a fresh left carotid endarterectomy scar without any exudate or erythema. Lungs are clear auscultation bilaterally heart is regular rate and rhythm. 2 out of 6 systolic ejection murmur. Abdomen is slightly distended but nontender extremities without clubbing cyanosis or edema he is moving all of his extremities and able to handgrip bicep and tricep bilaterally just limited by the right wrist A-line. Results & Data Results & Data Vital Signs (Past 12 Hours) Vital Signs Temp Pulse Pulse Resp BP BP Pulse Ox 03/20/23 08:48 37.2 C 73 18 121/69 95 03/20/23 08:00 18 95 03/20/23 08:00 121/69 03/20/23 07:25 73 03/20/23 07:00 68 12 125/66 96 03/20/23 06:00 82 14 127/63 95 03/20/23 05:00 80 18 129/53 L 95 03/20/23 04:00 37.2 C 81 12 127/68 93 03/20/23 03:00 80 16 120/52 L 93 03/20/23 02:00 83 12 122/49 L 92 03/20/23 01:00 83 13 114/55 L 92 03/20/23 00:00 37 C 76 13 101/48 L 92 03/19/23 23:35 82 14 105/57 L 94 03/19/23 23:00 77 12 92/50 L 92 O2 Del Method O2 Flow Rate 03/20/23 08:48 03/20/23 08:00 Room Air 03/20/23 08:00 03/20/23 07:25 03/20/23 07:00 Room Air 03/20/23 06:00 Nasal Cannula 2 03/20/23 05:00 Nasal Cannula 2 03/20/23 04:00 Nasal Cannula 2 03/20/23 03:00 Room Air 03/20/23 02:00 Room Air 03/20/23 01:00 Room Air 03/20/23 00:00 Room Air 03/19/23 23:35 Room Air 03/19/23 23:00 Room Air Laboratory Results Laboratory Results Sodium 131 mmol/L (136-145) L 03/19/23 05:42 Potassium 4.3 mmol/L (3.5-5.1) 03/19/23 05:42 Chloride 101 mmol/L (98-107) 03/19/23 05:42 Carbon Dioxide 23 mmol/L (21-32) 03/19/23 05:42 Anion Gap 7 (3-11) 03/19/23 05:42 BUN 15 mg/dl (6-23) 03/19/23 05:42 Creatinine 1.35 mg/dl (0.6-1.4) 03/19/23 05:42 Est Cr Clr Drug Dosing 59.5 ml/min 03/19/23 05:42 Est GFR ( Amer) 64.3 ml/min 03/19/23 05:42 Est GFR (Non-Af Amer) 55.5 ml/min 03/19/23 05:42 BUN/Creatinine Ratio 11.1 (10-20) 03/19/23 05:42 Glucose 99 mg/dl (70-99(Fasting)) 03/19/23 05:42 POC Glucose 115 mg/dl (70-99) H 03/20/23 06:41 Calcium 9.4 mg/dl (8.6-10.3) 03/19/23 05:42 Nasal Screen MRSA (PCR) Negative (Negative) 03/19/23 Unknown SARS-CoV-2, RNA, NAAT NEGATIVE (NEGATIVE) 03/19/23 Unknown Blood Type O Positive 03/19/23 05:42 Antibody Screen NEGATIVE 03/19/23 05:42 Medications Administered Current Inpatient Medications Acetaminophen (Acetaminophen 325 Mg Tab) 650 mg PO Q6H PRN PRN Reason: Pain Stop: 04/18/23 11:27 Amlodipine Besylate (Amlodipine Besylate 5 Mg Tab) 5 mg PO BID ERIN Stop: 04/18/23 20:59 Last Admin: 03/20/23 08:12 Dose: 5 mg Aspirin (Aspirin 81 Mg Ectab) 81 mg PO DAILY ERIN Stop: 04/19/23 08:59 Last Admin: 03/20/23 08:12 Dose: 81 mg Atorvastatin Calcium (Atorvastatin 20 Mg Tab) 20 mg PO QPM ERIN Stop: 04/18/23 20:59 Last Admin: 03/19/23 20:27 Dose: 20 mg Bupropion HCl (Bupropion Sr 150 Mg Tabcr) 150 mg PO BID ERIN Stop: 04/18/23 20:59 Last Admin: 03/20/23 08:13 Dose: 150 mg Calcium Carbonate (Calcium Carbonate 500 Mg Chewable Tab) 500 mg PO TID PRN PRN Reason: Heartburn Stop: 04/18/23 11:53 Clopidogrel Bisulfate (Clopidogrel Bisulfate 75 Mg Tab) 75 mg PO [facility] Stop: 04/19/23 08:59 Last Admin: 03/20/23 08:13 Dose: 75 mg Hydralazine HCl (Hydralazine Hcl 25 Mg Tab) 25 mg PO BID [facility] Stop: 04/18/23 20:59 Last Admin: 03/20/23 08:13 Dose: 25 mg Sodium Chloride (Nss 1000ml) 1,000 mls @ 125 mls/hr IV .Q8H [facility] Stop: 04/18/23 11:25 Last Admin: 03/20/23 05:13 Dose: Not Given Loratadine (Loratadine 10 Mg Tab) 10 mg PO [facility] Stop: 04/19/23 08:59 Last Admin: 03/20/23 08:13 Dose: 10 mg Losartan Potassium (Losartan Potassium 50 Mg Tab) 100 mg PO [facility] Stop: 04/19/23 08:59 Last Admin: 03/20/23 08:14 Dose: 100 mg Metoprolol Succinate (Metoprolol Succ 50mg Ext Rel Tab) 100 mg PO [facility] Stop: 04/19/23 08:59 Last Admin: 03/20/23 08:14 Dose: 100 mg Morphine Sulfate (Morphine Sulfate 4 Mg/Ml 1 Ml Carp\Vial) 1 - 4 mg IV Q2H PRN PRN Reason: Severe Pain (Scale 7, 8, 9,10) Stop: 04/02/23 11:25 Multivitamins (Multivitamin Tab) 1 tab PO [facility] Stop: 04/19/23 08:59 Last Admin: 03/20/23 08:14 Dose: 1 tab Oxycodone/Acetaminophen (Oxycodone/Acetaminophen 5mg/325mg Tab) 1 - 2 tab PO Q4H PRN PRN Reason: Pain (Scale 3,4,5,6) Stop: 04/02/23 11:25 Sodium Chloride (Sodium Chloride 1 Gm Tablet) 1 gm PO [facility] Stop: 04/19/23 08:59 Last Admin: 03/20/23 08:18 Dose: 1 gm Coding Level of Care Code 01516 SUB INP/OBS CARE 1/25MIN History Problem Focused Exam Problem Focused Medical Decision Making Low Complexity Diagnoses Postprocedural urinary retention N99.89; R33.8 Memory impairment R41.3 Bilateral carotid artery stenosis I65.23 S/P carotid endarterectomy Z98.890 CVA (cerebral vascular accident) I63.9 Time Spent (min) 25
== END 2023-03-20 16:53 | disposition home or self-care (01) | DRG 38 ==
LOC: ASU 05:29 → 1E 09:26